=== PATIENT | male | born 1940 ===

== ENCOUNTER 2019-01-27 13:00 | Outpatient (RCR) | payer MEDICARE, MEDICAID, SELFPAY | END 2019-02-15 00:01 | LOC: WOUND 13:00 | PROVIDERS: Family Provider Nurse Practitioner; Visit Provider Nurse Practitioner Family | DX: L03.115 Cellulitis of right lower limb (principal) ==

== ENCOUNTER 2021-01-20 00:19 | Inpatient (IN) | payer MEDICARE, MEDICAID, SELFPAY ==
[2021-01-20] VITALS (22 sets, daily range): BP systolic 117–147; BP diastolic 52–112; PULSE 63–87; RESP 10–23; TEMP 36.6–37.9; O2SAT 91–99; BMI 46.7
--- NOTE | 2021-01-20 00:50 | PC.NURSE ---
Pt. triage notes entered in error on wrong chart.
--- NOTE | 2021-01-20 01:10 | CTR_ITS ---
PROCEDURE INFORMATION: Exam: CT Head Without Contrast Exam date and time: 01/20/2021 1:10 AM Age: 80 years old Clinical indication: Altered mental status/memory loss; Confusion or disorientation; Additional info: AMS TECHNIQUE: Imaging protocol: Computed tomography of the head without contrast. Radiation optimization: All CT scans at this facility use at least one of these dose optimization techniques: automated exposure control; mA and/or kV adjustment per patient size (includes targeted exams where dose is matched to clinical indication); or iterative reconstruction. COMPARISON: No relevant prior studies available. RADIATION DOSE METRICS: Total DLP (mGy-cm): 1402.97 FINDINGS: Brain: Loss of periventricular parenchyma. No hemorrhage. Mild chronic changes in the white matter. No mass effect. Cerebral ventricles: Ventricles are enlarged somewhat out of proportion to the cerebral sulci. Differential includes communicating hydrocephalus or central volume loss. Paranasal sinuses: Visualized sinuses are unremarkable. No fluid levels. Mastoid air cells: Visualized mastoid air cells are well aerated. Bones/joints: Unremarkable. No acute fracture. Soft tissues: Unremarkable. CT/CT head wo con* [id number] IMPRESSION: Ventricles are enlarged somewhat out of proportion to the cerebral sulci. Differential includes communicating hydrocephalus or central volume loss. Correlate for urinary incontinence, dementia, and gait disturbances. Radiation Dose CTDIVOL = (mGy): DLP = 1402.97 (mGy-cm)
--- NOTE | 2021-01-20 01:10 | XRR_ITS ---
PROCEDURE INFORMATION: Exam: XR Chest Exam date and time: 01/20/2021 1:10 AM Age: 80 years old Clinical indication: Other: AMS TECHNIQUE: Imaging protocol: XR of the chest. Views: 1 view. COMPARISON: 1. CR Chest 1 [place] [id number] 2016-12-27 11:13 2. CR Humerus LEFT* [id number] 2016-12-27 11:18 FINDINGS: Lungs: Moderate lung opacities in the right lung base, likely combination of atelectasis and consolidation. Retrocardiac opacities. Atelectatic right middle lobe correlate for mucous plugging, or obstructing lesion. Pleural spaces: Small to moderate right-sided pleural effusion and small left pleural effusions. Heart/Mediastinum: Cardiomegaly. Bones/joints: Unremarkable. XR/XR chest 1V portable [id number] IMPRESSION: 1. Cardiomegaly. 2. Moderate lung opacities in the right lung base, likely combination of atelectasis and consolidation. Retrocardiac opacities. Atelectatic right middle lobe correlate for mucous plugging, or obstructing lesion. 3. Small to moderate right-sided pleural effusion and small left pleural effusions. Radiation Dose CTDIVOL = (mGy): DLP = (mGy-cm)
--- NOTE | 2021-01-20 01:11 | ECG_ITS ---
[facility] Test Date: 2021-01-20 Pat Name: Kelton Wiseman Department: Room: Gender: Male Sql Report Developer: : 1940 Requested By: Paulie Sanchez Order Number: [id number] Maribel MD: Wolfgang Johnson M.D. Measurements Intervals [place] Rate: 78 P: 79 AL: 187 QRS: 50 QRSD: 138 T: 19 QT: 421 QTc: 480 Interpretive Statements SINUS RHYTHM RIGHT BUNDLE BRANCH BLOCK [120+ ms QRS DURATION, UPRIGHT V1, 40+ ms S IN I/aVL/V4/V5/V6] No previous ECG available for comparison Electronically Signed On 01-20-2021 13:16:38 TOBACCO CLASSER by Wolfgang Johnson M.D. [id number]
[2021-01-20 01:29] LABS: Basophils % 0.4 %; Eosinophils # 0.1 10^3/uL (0.0-0.8); Eosinophils % 0.9 %; Hematocrit 28.6 % (42.0-52.0); Hemoglobin 7.2 g/dL (11.7-16.6); Lymphocytes # 0.5 10^3/uL (0.8-4.8); Lymphocytes % 6.1 %; Mean Corpuscular HGB Conc 25.2 g/dL (30.0-36.0); Mean Corpuscular Hemoglobin 20.6 pg (28.0-34.0); Mean Corpuscular Volume 81.9 fl (80-94); Mean Platelet Volume 10.3 fL (7.4-10.4); Monocytes # 0.6 10^3/uL (0.2-0.9); Monocytes % 7.7 %; Neutrophils # 6.89 10^3/uL (1.8-7.7); Neutrophils % 84.2 %; Nucleated Red Blood Cells % 0 %; Platelet Count 191 10^3/cmm (130-400); Red Blood Count 3.49 10^6/uL (4.1-5.3); Red Cell Distribution Width 17.4 % (12.1-15.1); White Blood Count 8.2 10^3/uL (4.0-10.0)
[2021-01-20] MEDS: sodium chloride 0.9% 1,000 ML 999 ML IV (01:34)
[2021-01-20 01:43] LABS: Troponin(5th) Baseline 53 ng/L (0-15)
[2021-01-20 01:44] LABS: Lactate (Lactic Acid level) 0.9 mmol/L (0.5-2.2)
[2021-01-20 01:47] LABS: Add Urine Microscopic? YES; Bilirubin Urine Neg (Negative); Blood Urine 3+ (Negative); Glucose Urine UA Trace (Normal); Ketones Urine Negative (Negative); Leukocyte Esterase Urine 2+ (Negative); Nitrate Urine Negative (Negative); Protein Urine 1+ (Negative); Specific Gravity, Urine 1.015 (1.005-1.030); Urine Color Yellow (Yellow); Urobilinogen Urine Norm (Negative); pH Urine 6.5 (5-7)
[2021-01-20 01:51] LABS: NT Pro B Type Natriuretic Pept 1363 pg/mL (0-450); Procalcitonin 0.08 ng/mL (0-0.5)
[2021-01-20 02:02] LABS: ABG PH Result 7.24 (7.35-7.45); Base Excess ABG 6.3 mmol/L (-2.0-2.0); Blood Gas Allen Test Pos; Blood Gas Sample Site Radial, right; Blood Gas Sample Type Arterial; HCO3 ABG 34.8 mmol/L (22-26); Oxygen Device NC
[2021-01-20 02:02] LABS: Alanine Aminotransferase 23 U/L (0-41); Albumin Level 3.2 g/dL (3.5-5.2); Alkaline Phosphatase 66 IU/L (40-130); Aspartate Amino Transferase 15 U/L (0-40); Blood Urea Nitrogen 20 mg/dL (8-23); C Reactive Protein 8.3 mg/L (0.0-4.9); Calcium 7.3 mg/dL (8.5-10.5); Carbon Dioxide 24 mmol/L (22-29); Chloride 100 mmol/L (98-107); Globulin 2.1 g/dL (1.3-4.6); Glucose 188 mg/dL (65-115); Lipase 12 U/L (13-60); Magnesium 2.1 mg/dL (1.7-2.3); Osmolality Calculated 288 mOsm/kg (285-295); Sodium 135 mmol/L (136-145); Total Bilirubin 0.2 mg/dL (0.15-1.2); Total Protein 5.3 g/dL (6.6-8.7)
[2021-01-20 02:03] LABS: ABG PCO2 80.6 mmHg (35-45)
[2021-01-20 02:10] LABS: RBC Urine >100 /hpf (0-2); WBC Urine >100 /hpf (0-5)
[2021-01-20 02:11] LABS: Add Urine Culture? Yes; Bacteria Urine 3+ /hpf; Squamous Epithelial Cell Urine 0-4 /hpf (0-5)
[2021-01-20] MEDS: piperacillin-tazobactam 4.5 GM in sodium chloride 0.9% (plus) 50 ML IV (02:46)
--- NOTE | 2021-01-20 03:11 | ECG_ITS ---
[facility] Test Date: 2021-01-20 Pat Name: Kelton Wiseman Department: Room: Gender: Male Lsat Instructor: : 1940 Requested By: Paulie Sanchez Order Number: [id number] Maribel MD: Wolfgang Johnson M.D. Measurements Intervals [place] Rate: 84 P: 98 AL: 181 QRS: 91 QRSD: 134 T: 65 QT: 410 QTc: 487 Interpretive Statements SINUS RHYTHM WITH OCCASIONAL SUPRAVENTRICULAR PREMATURE COMPLEXES RIGHT BUNDLE BRANCH BLOCK [120+ ms QRS DURATION, UPRIGHT V1, 40+ ms S IN I/aVL/V4/V5/V6] Compared to ECG 01/20/2021 01:16:16 No significant changes Electronically Signed On 01-20-2021 13:28:50 DELPHI DEVELOPER by Wolfgang Johnson M.D. [id number]
[2021-01-20 04:06] LABS: D Dimer 0.61 ug/mIFEU (0-0.59)
--- NOTE | 2021-01-20 04:10 | ED_ITS ---
HPI - Altered Mental Status General: Chief Complaint: Altered Mental Status Stated Complaint: AMS Time Seen by Provider: 01/20/21 00:34 History of Present Illness: HPI narrative: 80-year-old nonverbal fpc patient. He is nonverbal, and has a history of developmental delay. He presents with altered mental status. Apparently, he is usually nonverbal, but somewhat up and about. He was quite lethargic in the fpc evidently. No history of fever, but the fpc did not call report, so we are unsure at this point. According to EMS, oxygen saturations had been in the 70s at the fpc MD complaint: altered mental status Onset (ago): unknown Timing confirmed by: other Severity: moderate Consistency of symptoms: Getting Worse Treatments prior to arrival: oxygen Review of Systems General: Reports: ROS unobtainable due to medical condition PFSH ED PFSH: Medical History Mild mental handicap Neurogenic bladder Type 2 diabetes mellitus without complications Surgical History History of bladder surgery History of colonoscopy History of esophagogastroduodenoscopy (EGD) History of hernia repair Physical Exam Const: EXAM LIMITATIONS: altered mental status and behavioral limitations GENERAL APPEARANCE: well kempt, ill appearing and frail appearing ORIENTATION/CONSCIOUSNESS: Yes oriented to person; not oriented to place and not oriented to time HENMT: COMMON NORMALS: normocephalic HEAD & SCALP: normocephalic Chest: COMMONS NORMALS: normal inspection of the chest Resp: EFFORT & INSPECTION: Yes tachypneic and Yes labored AUSCULTATION: no crackles, no rales, no rhonchi and diminished lung sounds Cardio: COMMON NORMALS: regular rate and regular rhythm RATE: regular rate RHYTHM: regular rhythm GI: COMMON NORMALS: Normal to inspection, nondistended, normoactive bowel sounds present, Soft to palpation and non-tender PALPATION: Yes Soft to palpation Extremity: GENERAL: Yes edema (Mild) Neuro: SENSORIUM/ORIENTATION: Yes oriented to person, No oriented to place and No oriented to time Psych: APPEARANCE: Yes well kempt Course Vital Signs: Vital signs: Vital Signs Temperature 98.7 F 01/20/21 00:19 Pulse Rate 68 01/20/21 04:36 Respiratory Rate 18 01/20/21 00:19 Blood Pressure 117/82 01/20/21 03:12 Pulse Oximetry 96 01/20/21 04:36 MDM - Altered Mental Status MDM Narrative: Medical decision making narrative: Patient is placed on BiPAP after ABG after arrival showed pH of 7.22 with PCO2 of 80. Hemoglobin is significantly low at 7.2. No prior hemoglobin to compare. White blood cell count is only 8. BMP is normal. Urinalysis shows nitrite positive, leukocyte esterase positive, greater than 100 WBCs and RBCs chest x-ray shows a right lower lobe consolidation with effusion. CT of the head is nonacute. pH improving after BiPAP and PCO2 is coming down. He is not hypotensive nor tachycardic, so sepsis fluid bolus was not given. Blood cultures are drawn and pending. He will go to the [facility]. Lab Data: Labs: Lab Results 01/20/21 01/20/21 01/20/21 00:54 00:54 00:54 WBC 8.2 10^3/uL 10^3/ uL (4.0-10.0) RBC 3.49 10^6/uL L 10 ^6/uL (4.1-5.3) Hgb 7.2 g/dL L g/dL (11.7-16.6) Hct 28.6 % L % (42.0-52.0) MCV 81.9 fl fl (80-94) MCH 20.6 pg L pg (28.0-34.0) MCHC 25.2 g/dL L g/dL (30.0-36.0) RDW 17.4 % H % (12.1-15.1) Plt Count 191 10^3/cmm 10^3 /cmm (130-400) MPV 10.3 fL fL (7.4-10.4) Neut % (Auto) 84.2 % % Lymph % (Auto) 6.1 % % [place] % (Auto) 7.7 % % Eos % (Auto) 0.9 % % Baso % (Auto) 0.4 % % Neut # (Auto) 6.89 10^3/uL 10^3 /uL (1.8-7.7) Lymph # (Auto) 0.5 10^3/uL L 10^ 3/uL (0.8-4.8) [place] # (Auto) 0.6 10^3/uL 10^3/ uL (0.2-0.9) Eos # (Auto) 0.1 10^3/uL 10^3/ uL (0.0-0.8) Baso # (Auto) 0.0 10^3/uL 10^3/ uL (0.0-0.1) Nucleated RBC % (a uto) 0 % % Nucleated RBCs # 0.0 /100WBC /100W BC D-Dimer Specimen Type Sample Site ABG pH ABG pCO2 ABG pO2 ABG HCO3 ABG Base Excess Cedric Test Hematocrit O2 Delivery Device O2 Liters/Min FiO2 Mode BiPAP Flight Crew Time Clerk ID Sodium 135 mmol/L L mmol /L (136-145) Potassium 5.0 mmol/L mmol/L (3.5-5.1) Chloride 100 mmol/L mmol/L (98-107) Carbon Dioxide 24 mmol/L mmol/L (22-29) Anion Gap 16.0 (5-19) BUN 20 mg/dL mg/dL (8-23) Creatinine 0.8 mg/dL mg/dL (0.7-1.2) GFR Calculation Not Reportable Glucose 188 mg/dL H mg/dL (65-115) Calculated Osmolal ity 288 mOsm/kg mOsm/ kg (285-295) Lactate 0.9 mmol/L mmol/L (0.5-2.2) Calcium 7.3 mg/dL L mg/dL (8.5-10.5) Magnesium 2.1 mg/dL mg/dL (1.7-2.3) Total Bilirubin 0.2 mg/dL mg/dL (0.15-1.2) AST 15 U/L U/L (0-40) ALT 23 U/L U/L (0-41) Alkaline Phosphata se 66 IU/L IU/L (40-130) Troponin T Baselin e Troponin T [address] [place] Troponin T C-Reactive Protein 8.3 mg/L H mg/L (0.0-4.9) NT-Pro-B Natriuret Pep 1363 pg/mL H pg/m L (0-450) Total Protein 5.3 g/dL L g/dL (6.6-8.7) Albumin 3.2 g/dL L g/dL (3.5-5.2) Globulin 2.1 g/dL g/dL (1.3-4.6) Lipase 12 U/L L U/L (13-60) Procalcitonin 0.08 ng/mL ng/mL (0-0.5) Urine Color Urine Appearance Urine pH Ur Specific Gravit y Urine Protein Urine Glucose (UA) Urine Ketones Urine Blood Urine Nitrate Urine Bilirubin Urine Urobilinogen Ur Leukocyte [place] Urine RBC Urine WBC Ur Squamous Epith Cells Amorphous Sediment Urine Bacteria SARS-CoV-2 Ag (Rap id) Blood Type Rho(D) Type Antibody Screen Crossmatch 01/20/21 01/20/21 01/20/21 00:54 00:54 01:10 WBC RBC Hgb Hct MCV MCH MCHC RDW Plt Count MPV Neut % (Auto) Lymph % (Auto) [place] % (Auto) Eos % (Auto) Baso % (Auto) Neut # (Auto) Lymph # (Auto) [place] # (Auto) Eos # (Auto) Baso # (Auto) Nucleated RBC % (a uto) Nucleated RBCs # D-Dimer 0.61 ug/mIFEU H u g/mIFEU (0-0.59) Specimen Type Arterial Sample Site Radial, right ABG pH 7.24 L (7.35-7.45) ABG pCO2 80.6 mmHg H* mmHg (35-45) ABG pO2 78.0 mmHg L mmHg (80.0-100.0) ABG HCO3 34.8 mmol/L H mmo l/L (22-26) ABG Base Excess 6.3 mmol/L H mmol /L (-2.0-2.0) Cedric Test Pos Hematocrit 24.0 % L % (42-52) O2 Delivery Device Nc O2 Liters/Min 4.0 % % FiO2 Mode BiPAP Flight Crew Time Clerk ID [email or web address] Sodium Potassium Chloride Carbon Dioxide Anion Gap BUN Creatinine GFR Calculation Glucose Calculated Osmolal ity Lactate Calcium Magnesium Total Bilirubin AST ALT Alkaline Phosphata se Troponin T Baselin e 53 ng/L H ng/L (0-15) Troponin T [address] [place] Troponin T C-Reactive Protein NT-Pro-B Natriuret Pep Total Protein Albumin Globulin Lipase Procalcitonin Urine Color Urine Appearance Urine pH Ur Specific Gravit y Urine Protein Urine Glucose (UA) Urine Ketones Urine Blood Urine Nitrate Urine Bilirubin Urine Urobilinogen Ur Leukocyte [place] Urine RBC Urine WBC Ur Squamous Epith Cells Amorphous Sediment Urine Bacteria SARS-CoV-2 Ag (Rap id) Blood Type Rho(D) Type Antibody Screen Crossmatch 01/20/21 01/20/21 01/20/21 01:36 02:30 02:30 WBC RBC Hgb Hct MCV MCH MCHC RDW Plt Count MPV Neut % (Auto) Lymph % (Auto) [place] % (Auto) Eos % (Auto) Baso % (Auto) Neut # (Auto) Lymph # (Auto) [place] # (Auto) Eos # (Auto) Baso # (Auto) Nucleated RBC % (a uto) Nucleated RBCs # D-Dimer Specimen Type Sample Site ABG pH ABG pCO2 ABG pO2 ABG HCO3 ABG Base Excess Cedric Test Hematocrit O2 Delivery Device O2 Liters/Min FiO2 Mode BiPAP Flight Crew Time Clerk ID Sodium Potassium Chloride Carbon Dioxide Anion Gap BUN Creatinine GFR Calculation Glucose Calculated Osmolal ity Lactate Calcium Magnesium Total Bilirubin AST ALT Alkaline Phosphata se Troponin T Baselin e Troponin T [address] [place] 49.50 ng/L H ng/L (0-15) [place] Troponin T -3.50 ABS# L ABS# (0-10) C-Reactive Protein NT-Pro-B Natriuret Pep Total Protein Albumin Globulin Lipase Procalcitonin Urine Color Yellow (Yellow) Urine Appearance Sl cloudy A (CLEAR) Urine pH 6.5 (5-7) Ur Specific Gravit y 1.015 (1.005-1.030) Urine Protein 1+ H (Negative) Urine Glucose (UA) Trace H (Normal) Urine Ketones Negative (Negative) Urine Blood 3+ H (Negative) Urine Nitrate Negative (Negative) Urine Bilirubin Neg (Negative) Urine Urobilinogen Norm mg/dL mg/dL (Negative) Ur Leukocyte [place] 2+ H (Negative) Urine RBC >100 /hpf H /hpf (0-2) Urine WBC >100 /hpf H /hpf (0-5) Ur Squamous Epith Cells 0-4 /hpf H /hpf (0-5) Amorphous Sediment Not Reportable Urine Bacteria 3+ /hpf H /hpf (NONE) SARS-CoV-2 Ag (Rap id) Blood Type A Positive Rho(D) Type Positive Antibody Screen Positive Crossmatch See Detail 01/20/21 01/20/21 03:51 03:57 WBC RBC Hgb Hct MCV MCH MCHC RDW Plt Count MPV Neut % (Auto) Lymph % (Auto) [place] % (Auto) Eos % (Auto) Baso % (Auto) Neut # (Auto) Lymph # (Auto) [place] # (Auto) Eos # (Auto) Baso # (Auto) Nucleated RBC % (a uto) Nucleated RBCs # D-Dimer Specimen Type Arterial Sample Site Radial, right ABG pH 7.32 L (7.35-7.45) ABG pCO2 65.7 mmHg H* mmHg (35-45) ABG pO2 90.2 mmHg mmHg (80.0-100.0) ABG HCO3 33.4 mmol/L H mmo l/L (22-26) ABG Base Excess 6.3 mmol/L H mmol /L (-2.0-2.0) Cedric Test Pos Hematocrit 24.0 % L % (42-52) O2 Delivery Device Bipap O2 Liters/Min FiO2 28.0 % % Mode BiPAP 14/6 Flight Crew Time Clerk ID [email or web address] Sodium Potassium Chloride Carbon Dioxide Anion Gap BUN Creatinine GFR Calculation Glucose Calculated Osmolal ity Lactate Calcium Magnesium Total Bilirubin AST ALT Alkaline Phosphata se Troponin T Baselin e Troponin T [address] [place] Troponin T C-Reactive Protein NT-Pro-B Natriuret Pep Total Protein Albumin Globulin Lipase Procalcitonin Urine Color Urine Appearance Urine pH Ur Specific Gravit y Urine Protein Urine Glucose (UA) Urine Ketones Urine Blood Urine Nitrate Urine Bilirubin Urine Urobilinogen Ur Leukocyte [place] Urine RBC Urine WBC Ur Squamous Epith Cells Amorphous Sediment Urine Bacteria SARS-CoV-2 Ag (Rap id) Negative (Negative) Blood Type Rho(D) Type Antibody Screen Crossmatch Discharge Plan Discharge Prescriptions: No Action citalopram 40 mg tablet 40 mg PO DAILY Qty: 30 RF: 0 levofloxacin 750 mg tablet 750 mg PO DAILY 7 Days Qty: 7 RF: 0 terazosin 5 mg capsule 5 mg PO DAILY RF: 0 acetaminophen [Tylenol Extra Strength] 500 mg tablet 500 mg PO Q6H PRN (Reason: Pain, Mild) RF: 0 sucralfate [Carafate] 1 gram tablet 1 gm PO BID RF: 0 furosemide [Lasix] 20 mg tablet 20 mg PO DAILY RF: 0 potassium chloride 10 mEq capsule, extended release 10 meq PO DAILY RF: 0 pravastatin [Pravachol] 40 mg tablet 40 mg PO DAILY RF: 0 metformin 500 mg tablet 500 mg PO BID RF: 0 magnesium oxide 400 mg (241.3 mg magnesium) tablet 400 mg PO DAILY RF: 0 docusate sodium [Colace] 100 mg capsule 100 mg PO DAILY RF: 0 lisinopril 2.5 mg tablet 2.5 mg PO DAILY RF: 0 ferrous sulfate 325 mg (65 mg iron) tablet 325 mg PO DAILY RF: 0 aspirin [Adult Aspirin Regimen] 81 mg tablet,delayed release (DR/EC) 81 mg PO DAILY RF: 0 triamcinolone acetonide 0.1 % ointment 1 applic topical BID Qty: 453.6 RF: 3 Hlqiqsi-Viphgbt-Gdiveyxbzozybn 90-60-800 mg Tablet Extended Release 12 Hr 1 tab PO QID RF: 0 albuterol sulfate 90 mcg/actuation Hfa Aerosol Inhaler 1 puff INHALATION QID PRN (Reason: Wheezing) RF: 0 ondansetron 4 mg Tablet,Disintegrating 4 mg PO Q6H PRN (Reason: Nausea) RF: 0 levocetirizine 5 mg Tablet 5 mg PO DAILY RF: 0 Coding Level of Care Code ED Lead Network Architect for Chg Fwd Exam Detailed
[2021-01-20 04:24] LABS: ABG PH Result 7.32 (7.35-7.45); Base Excess ABG 6.3 mmol/L (-2.0-2.0); Blood Gas Allen Test Pos; Blood Gas Sample Site Radial, right; Blood Gas Sample Type Arterial; HCO3 ABG 33.4 mmol/L (22-26); Oxygen Device BIPAP; PO2 ABG 90.2 mmHg (80.0-100.0)
[2021-01-20 04:26] LABS: ABG PCO2 65.7 mmHg (35-45); BIPAP 14/6
[2021-01-20 04:35] LABS: SARS Covid-2 Antigen Negative (Negative)
[2021-01-20 07:41] LABS: Troponin 5 6HR 50.58 ng/L (0-15)
[2021-01-20 07:42] LABS: Troponin 5 6HR Delta -2.42 ng/L (0-12)
--- NOTE | 2021-01-20 07:51 | P.HP_ITS ---
Providers/Chief Complaint Admitting Physician: Monica Maradiaga MD Primary Care Provider: Young Sotelo MD Chief Complaint: AMS History of Present Illness Kelton Wiseman is a 80 year old male, [place] [facility] for developmental delay. At a baseline patient does communicate no with very simple words, able to make needs known such as hunger bowel movements is extra. Transfers with a walker at baseline does not ambulate very much. He is brought into the emergency room today due to complaints of difficulty breathing, hypoxia new oxygen requirement of 5 L/min on nasal cannula. This past week he was also being treated for a urinary tract infection with levofloxacin 750 mg p.o. daily. History is obtained by talking to nurse at [facility]. About 2 weeks ago patient had an episode of witnessed aspiration while he was eating a large piece of chicken. He was on a regular diet prior, after this event he was evaluated by swallow specialist and has been placed on a soft mechanical diet. Patient has a chronic indwelling Villatoro in place which is changed regularly. Chest x-ray today shows right lower lobe pneumonia with pleural effusion. ABG shows hypercapnic respiratory failure with pH 7.24, 80 point 4.8, he was thereafter placed on a BiPAP. He has been afebrile. No leukocytosis noted on labs from 01 18 and today. Noted to have anemia with hemoglobin 7.2, no recent noted melena or hemoptysis at the [place] [facility]. Last known baseline hemoglobin is ~9 last checked on November 15, 2020 He was tested with rapid Covid antigen this past week and was reportedly negative. PCR has been checked today and pending Review of Systems General: Reports: ROS unobtainable due to medical condition Medications/Allergies Home Medications Medication Instructions Recorded Confirmed Last Taken Type acetaminophen 500 mg tablet 500 mg PO Q6H PRN 06/01/19 01/20/21 Unknown History docusate sodium 100 mg capsule 100 mg PO DAILY 06/01/19 01/20/21 Unknown History ferrous sulfate 325 mg (65 mg 325 mg PO DAILY 06/01/19 01/20/21 Unknown History iron) tablet furosemide 20 mg tablet 20 mg PO DAILY 06/01/19 01/20/21 Unknown History lisinopril 2.5 mg tablet 2.5 mg PO DAILY 06/01/19 01/20/21 Unknown History magnesium oxide 400 mg (241.3 mg 400 mg PO DAILY 06/01/19 01/20/21 Unknown History magnesium) tablet metformin 500 mg tablet 500 mg PO BID 06/01/19 01/20/21 Unknown History potassium chloride 10 mEq 10 meq PO DAILY 06/01/19 01/20/21 Unknown History capsule,extended release pravastatin 40 mg tablet 40 mg PO DAILY 06/01/19 01/20/21 Unknown History sucralfate 1 gram tablet 1 gm PO BID 06/01/19 01/20/21 Unknown History terazosin 5 mg capsule 5 mg PO DAILY 06/01/19 01/20/21 Unknown History aspirin 81 mg tablet,delayed 81 mg PO DAILY 08/16/20 01/20/21 Unknown History release triamcinolone acetonide 0.1 % 1 applic TOPICAL BID #453.6 g 08/16/20 01/20/21 Unknown Rx topical ointment citalopram 40 mg tablet 40 mg PO DAILY #30 tab 09/06/20 01/20/21 Unknown Rx levofloxacin 750 mg tablet 750 mg PO DAILY 7 Days #7 tab 01/17/21 01/20/21 Unknown Rx albuterol sulfate 1 puff INHALATION QID PRN 01/20/21 01/20/21 Unknown History levocetirizine 5 mg PO DAILY 01/20/21 01/20/21 Unknown History ondansetron 4 mg PO Q6H PRN 01/20/21 01/20/21 Unknown History whvsxpwcqgxrfgu-US-ncnqofxxdlg 1 tab PO QID 01/20/21 01/20/21 Unknown History [Gipslrw-[id number]-Mtkcwijozghvzx] Allergies Allergy/AdvReac Type Severity Reaction Status Date / Time No Known Allergies Allergy Verified 01/20/21 00:32 PFSH Acute PFSH: Medical History (Updated 01/20/21 @ 08:03 by Monica Maradiaga MD) Anal fistula Arthritis of knee Bilateral edema of lower extremity GERD (gastroesophageal reflux disease) Iron deficiency Mild mental handicap Neurogenic bladder Pure hypercholesterolemia, unspecified Retention of urine, unspecified Type 2 diabetes mellitus without complications Surgical History History of bladder surgery History of colonoscopy History of esophagogastroduodenoscopy (EGD) History of hernia repair Vitals/I&O/Wt Last Vital Signs Temp 98.7 F 01/20/21 00:19 Pulse 68 01/20/21 06:09 Resp 18 01/20/21 00:19 BP 118/72 01/20/21 06:09 Pulse Ox 98 01/20/21 06:09 01/19/21 01/20/21 01/20/21 22:59 06:59 14:59 Intake Total 1050 / 1050 Balance 1050 / 1050 Weight last 48 hrs Weight 123.377 kg Weight 54.885 kg Physical Exam Narrative: EXAM NARRATIVE: General: Currently on Bipap, unable to participate in history HEENT: PERRLA, pupils bilaterally equal and reactive, pallors not present Chest: crackles to asucultation RLL CVS: S1-S2 regular, no murmurs, no tachycardia, no gallops, no rubs Abdomen: Soft, nontender, no organomegaly, bowel sounds present Neuro: unable to assess at this time Data : 01/20/21 00:54 01/20/21 00:54 Micro: Microbiology 01/20/21 02:36 Blood Culture - Preliminary Blood SPECIMEN COLLECTED 01/20/21 02:34 Blood Culture - Preliminary Blood SPECIMEN COLLECTED Attestation for Other Data: I personally reviewed and interpreted the following: Other data: Laboratory Results WBC 8.2 10^3/uL (4.0-10.0) 01/20/21 00:54 RBC 3.49 10^6/uL (4.1-5.3) L 01/20/21 00:54 Hgb 7.2 g/dL (11.7-16.6) L 01/20/21 00:54 Hct 28.6 % (42.0-52.0) L 01/20/21 00:54 MCV 81.9 fl (80-94) 01/20/21 00:54 MCH 20.6 pg (28.0-34.0) L 01/20/21 00:54 MCHC 25.2 g/dL (30.0-36.0) L 01/20/21 00:54 RDW 17.4 % (12.1-15.1) H 01/20/21 00:54 Plt Count 191 10^3/cmm (130-400) 01/20/21 00:54 MPV 10.3 fL (7.4-10.4) 01/20/21 00:54 Neut % (Auto) 84.2 % 01/20/21 00:54 Lymph % (Auto) 6.1 % 01/20/21 00:54 [place] % (Auto) 7.7 % 01/20/21 00:54 Eos % (Auto) 0.9 % 01/20/21 00:54 Baso % (Auto) 0.4 % 01/20/21 00:54 Neut # (Auto) 6.89 10^3/uL (1.8-7.7) 01/20/21 00:54 Lymph # (Auto) 0.5 10^3/uL (0.8-4.8) L 01/20/21 00:54 [place] # (Auto) 0.6 10^3/uL (0.2-0.9) 01/20/21 00:54 Eos # (Auto) 0.1 10^3/uL (0.0-0.8) 01/20/21 00:54 Baso # (Auto) 0.0 10^3/uL (0.0-0.1) 01/20/21 00:54 Nucleated RBC % (auto) 0 % 01/20/21 00:54 Nucleated RBCs # 0.0 /100WBC 01/20/21 00:54 D-Dimer 0.61 ug/mIFEU (0-0.59) H 01/20/21 00:54 Specimen Type Arterial 01/20/21 03:51 Sample Site Radial, right 01/20/21 03:51 ABG pH 7.32 (7.35-7.45) L 01/20/21 03:51 ABG pCO2 65.7 mmHg (35-45) H* 01/20/21 03:51 ABG pO2 90.2 mmHg (80.0-100.0) 01/20/21 03:51 ABG HCO3 33.4 mmol/L (22-26) H 01/20/21 03:51 ABG Base Excess 6.3 mmol/L (-2.0-2.0) H 01/20/21 03:51 Cedric Test Pos 01/20/21 03:51 Hematocrit 24.0 % (42-52) L 01/20/21 03:51 O2 Delivery Device Bipap 01/20/21 03:51 O2 Liters/Min 4.0 % 01/20/21 01:10 FiO2 28.0 % 01/20/21 03:51 Mode BiPAP 14/6 01/20/21 03:51 Cdl Company Flatbed Driver ID [email or web address] 01/20/21 03:51 Sodium 135 mmol/L (136-145) L 01/20/21 00:54 Potassium 5.0 mmol/L (3.5-5.1) 01/20/21 00:54 Chloride 100 mmol/L (98-107) 01/20/21 00:54 Carbon Dioxide 24 mmol/L (22-29) 01/20/21 00:54 Anion Gap 16.0 (5-19) 01/20/21 00:54 BUN 20 mg/dL (8-23) 01/20/21 00:54 Creatinine 0.8 mg/dL (0.7-1.2) 01/20/21 00:54 GFR Calculation Not Reportable 01/20/21 00:54 Glucose 188 mg/dL (65-115) H 01/20/21 00:54 Calculated Osmolality 288 mOsm/kg (285-295) 01/20/21 00:54 Lactate 0.9 mmol/L (0.5-2.2) 01/20/21 00:54 Calcium 7.3 mg/dL (8.5-10.5) L 01/20/21 00:54 Magnesium 2.1 mg/dL (1.7-2.3) 01/20/21 00:54 Total Bilirubin 0.2 mg/dL (0.15-1.2) 01/20/21 00:54 AST 15 U/L (0-40) 01/20/21 00:54 ALT 23 U/L (0-41) 01/20/21 00:54 Alkaline Phosphatase 66 IU/L (40-130) 01/20/21 00:54 Troponin T Baseline 53 ng/L (0-15) H 01/20/21 00:54 Troponin T 120 Minute 49.50 ng/L (0-15) H 01/20/21 02:30 Delta Troponin T -3.50 ABS# (0-10) L 01/20/21 02:30 Troponin T Hi Sens 6Hr 50.58 ng/L (0-15) H 01/20/21 07:04 Troponin T Hi Sens 6Hr Delta -2.42 ng/L (0-12) L 01/20/21 07:04 C-Reactive Protein 8.3 mg/L (0.0-4.9) H 01/20/21 00:54 NT-Pro-B Natriuret Pep 1363 pg/mL (0-450) H 01/20/21 00:54 Total Protein 5.3 g/dL (6.6-8.7) L 01/20/21 00:54 Albumin 3.2 g/dL (3.5-5.2) L 01/20/21 00:54 Globulin 2.1 g/dL (1.3-4.6) 01/20/21 00:54 Lipase 12 U/L (13-60) L 01/20/21 00:54 Procalcitonin 0.08 ng/mL (0-0.5) 01/20/21 00:54 Urine Color Yellow (Yellow) 01/20/21 01:36 Urine Appearance Sl cloudy (CLEAR) A 01/20/21 01:36 Urine pH 6.5 (5-7) 01/20/21 01:36 Ur Specific Gail 1.015 (1.005-1.030) 01/20/21 01:36 Urine Protein 1+ (Negative) H 01/20/21 01:36 Urine Glucose (UA) Trace (Normal) H 01/20/21 01:36 Urine Ketones Negative (Negative) 01/20/21 01:36 Urine Blood 3+ (Negative) H 01/20/21 01:36 Urine Nitrate Negative (Negative) 01/20/21 01:36 Urine Bilirubin Neg (Negative) 01/20/21 01:36 Urine Urobilinogen Norm mg/dL (Negative) 01/20/21 01:36 Ur Leukocyte Esterase 2+ (Negative) H 01/20/21 01:36 Urine RBC >100 /hpf (0-2) H 01/20/21 01:36 Urine WBC >100 /hpf (0-5) H 01/20/21 01:36 Ur Squamous Epith Cells 0-4 /hpf (0-5) H 01/20/21 01:36 Amorphous Sediment Not Reportable 01/20/21 01:36 Urine Bacteria 3+ /hpf (NONE) H 01/20/21 01:36 SARS-CoV-2 Ag (Rapid) Negative (Negative) 01/20/21 03:57 Blood Type A Positive 01/20/21 02:30 Rho(D) Type Positive 01/20/21 02:30 Antibody Screen Negative 01/20/21 02:30 Antibody Identification Cancelled 01/20/21 02:30 Crossmatch See Detail 01/20/21 02:30 Impressions Chest X-Ray 01/20/21 01:10 IMPRESSION: 1. Cardiomegaly. 2. Moderate lung opacities in the right lung base, likely combination of atelectasis and consolidation. Retrocardiac opacities. Atelectatic right middle lobe correlate for mucous plugging, or obstructing lesion. 3. Small to moderate right-sided pleural effusion and small left pleural effusions. Radiation Dose CTDIVOL = (mGy): DLP = (mGy-cm) Head CT 01/20/21 01:10 IMPRESSION: Ventricles are enlarged somewhat out of proportion to the cerebral sulci. Differential includes communicating hydrocephalus or central volume loss. Correlate for urinary incontinence, dementia, and gait disturbances. Radiation Dose CTDIVOL = (mGy): DLP = 1402.97 (mGy-cm) A&P Assessment and plan (1) Pneumonia: Status: Acute (2) Mild mental handicap: Status: Acute (3) Neurogenic bladder: Status: Acute (4) Anemia: Status: Acute Additional A&P Information Longstanding [place] [facility] resident presenting today with noted hypoxia and respiratory discomfort. Brought into the ER for evaluation, chest x-ray shows right lower lobe pneumonia and ABG consistent with hypercapnic respiratory failure, currently on BiPAP ventilation. Overall picture consistent with right lower lobe pneumonia, which may be territory account representative of community-acquired pneumonia versus aspiration pneumonia given recent history of choking episode on 01/08 and change in diet to mechanical soft consistency thereafter. Start antibiotic treatment with empiric Zosyn. Less likely to be atypical pneumonia given that patient has been on outpatient levofloxacin. Check blood culture, sputum Gram stain and culture, MRSA PCR, urine bacterial and Legionella antigens, Covid PCR ABG consistent with hypercapnic respiratory failure with respiratory acidosis for which patient is currently on BiPAP ventilation. Repeat ABG this morning. Mild insulin sliding scale for diabetes mellitus. Noted to have anemia with hemoglobin of 7, last known baseline~9 on Jodi 30. Check FOBT, iron panel B12 folate. 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
[2021-01-20] MEDS: ipratropium-albuterol 3 mL Neb INHALATION ×3 (08:48→20:55)
[2021-01-20 09:01] LABS: ABG PH Result 7.37 (7.35-7.45); Arterial Blood Gas Hematocrit 24.4 % (42-52); Base Excess ABG 9.5 mmol/L (-2.0-2.0); Blood Gas Allen Test Pos; Blood Gas Operator Identificat CAK; Blood Gas Sample Site Radial, right; Blood Gas Sample Type Arterial; Oxygen Device BIPAP; PO2 ABG 58.2 mmHg (80.0-100.0)
[2021-01-20 09:02] LABS: ABG PCO2 62.3 mmHg (35-45)
[2021-01-20] MEDS: piperacillin-tazobactam 3.375 GM in sodium chloride 0.9% (plus) 50 ML IV ×2 (10:56→23:26)
[2021-01-20] MEDS: FUROsemide 20 mg Tablet PO (10:58)
[2021-01-20] MEDS: atorvastatin 40 mg Tablet 20 MG PO (10:58)
[2021-01-20] MEDS: citalopram 20 mg Tablet 40 MG PO (10:59)
[2021-01-20] MEDS: lisinopril 2.5 mg Tablet PO (11:00)
[2021-01-20 11:01] LABS: Ferritin 7 ng/mL (30-400); Iron 19 ug/dL (59-158); Percent Saturation 6.5 % (20-50); Total Iron Binding Capacity 289 mcg/dl; Unsaturated Iron Binding 270 ug/dL (112-347)
[2021-01-20] MEDS: pantoprazole DR 40 mg Tablet PO (11:01)
[2021-01-20] MEDS: magnesium oxide 400 mg tablet PO (11:01)
[2021-01-20] MEDS: docusate sodium 100 mg Capsule PO (11:02)
[2021-01-20] MEDS: terazosin 5 mg Capsule PO (11:03)
[2021-01-20] MEDS: sucralfate 1 gm Tablet PO (11:04)
[2021-01-20] MEDS: enoxaparin 40 mg/0.4 mL Syringe SUBCUT (11:06)
[2021-01-20 11:17] LABS: Vitamin B12 197 pg/mL (232-1245)
--- NOTE | 2021-01-20 11:57 | PC.NURSE ---
Fed pt full noon meal. Ate without any complications.
[2021-01-20 12:07] LABS: Folate Level 14.3 ng/mL (4.5-32.2)
--- NOTE | 2021-01-20 12:57 | PM.MISC ---
Miscellaneous Note Note: Patient is here for management of aspiration pneumonia he was awake and alert saturating well on 4 L nasal cannula at the time of my evaluation in the ER Continue Zosyn Follow-up with blood and sputum culture Obese male Oriented to himself able to tell me his name and date of Pleasant and cooperative during my evaluation Nonfocal neuro exam Able to move his upper extremities Paraplegic Chronic indwelling catheter draining yellow urine Venous stasis dermatitis Nonpitting edema Distended abdomen, basal obesity No audible stridor or wheezing Upper airway secretions regimens noted Plan Acute hypoxia without respiratory failure patient is not experiencing conversational dyspnea Currently on 4 L nasal cannula, off BiPAP Repeat blood gas at 4 PM Awake and alert no signs of encephalopathy Aspiration pneumonia: We will request speech evaluation Does not have any strokelike features, nonfocal neuro exam Acute anemia no active bleeding no melena or hemoptysis Check FOBT, will give 1 unit PRBC if hemoglobin less than 7 Baseline hemoglobin seems to around 9 Neurogenic bladder: Chronic indwelling catheter, cloudy urine pyuria, no leukocytosis or fever currently on Zosyn Fluid overloaded, troponin with negative delta, BNP 1300, Continue 20 mg Lasix Acute on chronic heart failure Fluid overloaded, DNR/DNI
[2021-01-20 13:41] LABS: Influenza A by IFA Negative (Negative); Influenza B by IFA Negative (Negative)
[2021-01-20 13:45] LABS: Glucose Point of Care 190 mg/dL (70-110)
[2021-01-20] MEDS: insulin lispro 100 unit/1 mL SUBCUT (13:48)
[2021-01-20 18:23] LABS: Glucose Point of Care 130 mg/dL (70-110)
--- NOTE | 2021-01-20 18:54 | PC.NURSE ---
Addendum entered by Virgie Talley RN 01/20/21 18:55: ABX at 1700 Original Note: Waiting for medication from pharmacy
--- NOTE | 2021-01-20 19:08 | PC.NURSE ---
report given at 1835. Documentated wrong time for report
[2021-01-20 20:17] LABS: Glucose Point of Care 152 mg/dL (70-110)
[2021-01-21] VITALS (16 sets, daily range): BP systolic 117–138; BP diastolic 53–82; PULSE 69–78; RESP 16–27; TEMP 36.6–37.3; O2SAT 90–98
[2021-01-21] MEDS: ipratropium-albuterol 3 mL Neb INHALATION ×4 (02:57→20:45)
--- NOTE | 2021-01-21 06:00 | USCV_ITS ---
Kelton Wiseman Age: 80 Gender: M : 1940 Exam Date: 01/21/2021 10:00 Ordering Phys: Elle Mcclure MD Technologist: BRANDAN [place] [facility] [place] EF only Patient is a poor historian. BP: 122 / 76 HR: 81 Rhythm: Sinus Technical Quality: Adequate MEASUREMENTS (Male / Female) Normal Values 2D ECHO LV Diastolic Diameter PLAX 5.2 cm 4.2 - 5.9 / 3.9 - 5.3 cm LV Systolic Diameter PLAX 3.9 cm IVS Diastolic Thickness 1.6 cm 0.6 - 1.0 / 0.6 - 0.9 cm IVS Systolic Thickness 2.1 cm LVPW Diastolic Thickness 1.1 cm 0.6 - 1.0 / 0.6 - 0.9 cm LVPW Systolic Thickness 1.6 cm LVOT Diameter 2.0 cm LV Ejection Fraction 2D Teich 47.5 % LV Ejection Fraction MOD 2C 49.0 % LV Ejection Fraction 2C AL 50.0 % LA Diameter 4.7 cm LA Width 3.6 cm LA Height 4.3 cm RA Width 3.7 cm RA Height 3.5 cm Aorta at Sinotubular Diameter 2.7 cm FINDINGS Left Ventricle Normal left ventricular cavity size. Grossly normal left ventricle systolic function. Visually left ventricle ejection fraction estimated at 55%. Although no diagnostic regional wall motion abnormality could been fired, this possibility cannot be completely excluded based on the study. Abnormal septal motion. Right Ventricle Probably normal right ventricle size with mildly to moderately decreased right ventricle systolic function. Right Atrium Normal right atrial size. Left Atrium Mildly increased left atrial size. Mitral Valve Mildly thickened mitral valve. Aortic Valve Aortic valve not well visualized. Tricuspid Valve Tricuspid valve not well visualized. Pulmonic Valve Pulmonic valve not well visualized. Pericardium No pericardial effusion. Aorta Normal-sized aortic root. CONCLUSIONS 1. This is a technically difficult study. 2. Normal left ventricular cavity size. Grossly normal left ventricle systolic function. Visually left ventricle ejection fraction estimated at 55%. Although no diagnostic regional wall motion abnormality could been fired, this possibility cannot be completely excluded based on the study. Abnormal septal motion. 3. Probably normal right ventricle size with mildly to moderately decreased right ventricle systolic function. 4. No prior similar studies to compare. Monica Rodas MD (Electronically Signed) Final Date: 22 January 2021 16:24 S
[2021-01-21 06:06] LABS: Basophils % 0.4 %; Eosinophils # 0.2 10^3/uL (0.0-0.8); Eosinophils % 2.2 %; Hematocrit 28.5 % (42.0-52.0); Hemoglobin 7.4 g/dL (11.7-16.6); Lymphocytes # 0.6 10^3/uL (0.8-4.8); Lymphocytes % 8.8 %; Mean Corpuscular Hemoglobin 20.4 pg (28.0-34.0); Mean Corpuscular Volume 78.5 fl (80-94); Mean Platelet Volume 10.6 fL (7.4-10.4); Monocytes # 0.6 10^3/uL (0.2-0.9); Monocytes % 8.8 %; Neutrophils # 5.33 10^3/uL (1.8-7.7); Neutrophils % 79.2 %; Nucleated Red Blood Cells % 0 %; Platelet Count 194 10^3/cmm (130-400); Red Blood Count 3.63 10^6/uL (4.1-5.3); Red Cell Distribution Width 17.2 % (12.1-15.1); White Blood Count 6.7 10^3/uL (4.0-10.0)
[2021-01-21 06:25] LABS: Alanine Aminotransferase 22 U/L (0-41); Albumin Level 3.2 g/dL (3.5-5.2); Alkaline Phosphatase 64 IU/L (40-130); Anion Gap 14.4 (5-19); Aspartate Amino Transferase 12 U/L (0-40); Blood Urea Nitrogen 17 mg/dL (8-23); Calcium 7.6 mg/dL (8.5-10.5); Carbon Dioxide 29 mmol/L (22-29); Chloride 102 mmol/L (98-107); Globulin 2.5 g/dL (1.3-4.6); Glucose 102 mg/dL (65-115); Osmolality Calculated 294 mOsm/kg (285-295); Potassium 4.4 mmol/L (3.5-5.1); Sodium 141 mmol/L (136-145); Total Bilirubin 0.2 mg/dL (0.15-1.2); Total Protein 5.7 g/dL (6.6-8.7)
[2021-01-21 08:24] LABS: Glucose Point of Care 116 mg/dL (70-110)
[2021-01-21] MEDS: enoxaparin 40 mg/0.4 mL Syringe SUBCUT (08:47)
[2021-01-21] MEDS: pantoprazole DR 40 mg Tablet PO (08:48)
[2021-01-21] MEDS: citalopram 20 mg Tablet 40 MG PO (08:48)
[2021-01-21] MEDS: atorvastatin 40 mg Tablet 20 MG PO (08:48)
[2021-01-21] MEDS: sucralfate 1 gm Tablet PO ×2 (08:48→17:49)
[2021-01-21] MEDS: magnesium oxide 400 mg tablet PO (08:49)
[2021-01-21] MEDS: docusate sodium 100 mg Capsule PO (08:49)
[2021-01-21] MEDS: FUROsemide 20 mg Tablet PO (08:49)
[2021-01-21] MEDS: lisinopril 2.5 mg Tablet PO (08:49)
[2021-01-21] MEDS: piperacillin-tazobactam 3.375 GM in sodium chloride 0.9% (plus) 50 ML IV ×2 (10:49→17:40)
--- NOTE | 2021-01-21 11:57 | PM.PN ---
Subjective Subjective: Interval history: Seen this morning. No acute events overnight. Patient does not offer any complaints. He appears quite pleasant. He was about to have an echo done when I walked in the room. No acute events reported by nursing staff overnight. He was on BiPAP all night and now is on nasal cannula. Vitals/I&O/Wt Last Vital Signs Temp 98.7 F 01/21/21 11:46 Pulse 71 01/21/21 11:46 Resp 18 01/21/21 11:46 BP 123/53 01/21/21 11:46 Pulse Ox 90 01/21/21 11:46 01/20/21 01/21/21 01/21/21 22:59 06:59 14:59 Intake Total 200 / 200 200 / 400 480 / 480 Output Total 650 / 1550 Balance 200 / -700 -450 / -1150 480 / 480 Weight last 48 hrs Weight 123.377 kg Weight 54.885 kg Physical Exam Narrative: EXAM NARRATIVE: General: On nasal cannula at this time, very pleasant alert and oriented. Able to tell me his name and date of . Cooperative during examination. HEENT: Normocephalic atraumatic, pupils bilaterally equal and reactive, Chest: Mild crackles appreciated on auscultation the right lung base, rest of the lungs mainly clear to auscultation. Normal respiratory effort CVS: S1-S2 regular, no murmurs, Abdomen: Soft, nontender, bowel sounds present, obese rounded abdomen Neuro: Able to move upper extremities, paraplegic, Has chronic Villatoro catheter Data : 01/21/21 05:07 01/21/21 05:07 Micro: Microbiology 01/20/21 01:36 Urine Culture - Preliminary Urine Catheterized Gram Negative Rods 01/20/21 02:36 Blood Culture - Preliminary Blood NEGATIVE TO DATE 01/20/21 02:34 Blood Culture - Preliminary Blood NEGATIVE TO DATE 01/20/21 13:15 MRSA Culture - Final Nose 01/20/21 12:10 Legionella Urinary Antigen - Final Urine,Voided Bacterial Antigens - Final A&P Assessment and plan (1) Neurogenic bladder: Status: Acute (2) Pneumonia: Status: Acute (3) Anemia: Status: Acute (4) Stasis dermatitis: Status: Acute (5) Mild mental handicap: Status: Acute Additional A&P Information #Right lower lobe aspiration pneumonia #Hypercapnic respiratory failure on admission, on BiPAP. Now back to nasal cannula. #Diabetes mellitus #Intellectually disabled #Chronic indwelling Villatoro due to neurogenic bladder. #Paraplegia #Bilateral pleural effusions, cardiomegaly on x-ray #Acute anemia, no active bleeding or melena or hemoptysis Patient did have a choking episode on 01/08 and there was a change in diet done to mechanical soft consistency thereafter.. Continue IV Zosyn for now. Off note patient was on outpatient levofloxacin prior to arrival. ?Blood cultures negative to date, sputum Gram stain culture pending, MRSA PCR negative, urine bacterial Legionella antigens negative, Covid PCR ?Speech evaluation requested. No strokelike features nonfocal neuro exam. Continue patient on 4 L nasal cannula. ?We will need home oxygen evaluation at discharge ?Continue Villatoro catheter, urinalysis did not show leukocytosis. Patient has been covered with Zosyn for pneumonia at this time. Urinalysis did show gram-negative rods, culture sensitivity pending. ?Cardiomegaly on x-ray. Small to moderate right-sided pleural effusion and small left pleural effusions. Will transition to Lasix 40 IV daily. ?Echocardiogram pending. BNP 1300 admission. Unsure if patient has diagnosis of heart failure from prior. Please review the charts. ?Hemoglobin 7.4 today. 7.2 on admission. Will check FOBT, B12, folate., Iron studies. Full code Mech soft diet, may change based on speech recs. 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
[2021-01-21 12:00] LABS: Glucose Point of Care 169 mg/dL (70-110)
[2021-01-21] MEDS: insulin lispro 100 unit/1 mL SUBCUT ×3 (12:17→22:05)
[2021-01-21] MEDS: terazosin 5 mg Capsule PO (12:18)
[2021-01-21 13:46] LABS: Iron 13 ug/dL (59-158); Percent Saturation 4.9 % (20-50); Total Iron Binding Capacity 264 mcg/dl; Unsaturated Iron Binding 251 ug/dL (112-347)
[2021-01-21 14:03] LABS: Vitamin B12 160 pg/mL (232-1245)
[2021-01-21 15:14] LABS: Folate Level 17.7 ng/mL (4.5-32.2)
[2021-01-21] MEDS: FUROsemide 10 mg/mL SDV 4mL 40 MG IVP (16:03)
[2021-01-21 17:21] LABS: Glucose Point of Care 171 mg/dL (70-110)
[2021-01-21 17:22] LABS: Quest SARS-CoV-2 RNA NOT DETECTED (NOT DETECTED)
[2021-01-21 20:41] LABS: Hematocrit 29.9 % (42.0-52.0); Hemoglobin 7.9 g/dL (11.7-16.6)
[2021-01-21 22:45] LABS: Glucose Point of Care 250 mg/dL (70-110)
[2021-01-22] VITALS (15 sets, daily range): BP systolic 119–138; BP diastolic 52–87; PULSE 66–91; RESP 18–24; TEMP 36.5–37.1; O2SAT 89–97
[2021-01-22] MEDS: ipratropium-albuterol 3 mL Neb INHALATION ×4 (02:45→20:48)
[2021-01-22] MEDS: piperacillin-tazobactam 3.375 GM in sodium chloride 0.9% (plus) 50 ML IV ×3 (03:04→17:50)
[2021-01-22 06:11] LABS: Basophils % 0.4 %; Eosinophils # 0.1 10^3/uL (0.0-0.8); Eosinophils % 1.2 %; Hematocrit 28.9 % (42.0-52.0); Hemoglobin 7.5 g/dL (11.7-16.6); Lymphocytes # 0.5 10^3/uL (0.8-4.8); Mean Corpuscular Hemoglobin 20.4 pg (28.0-34.0); Mean Corpuscular Volume 78.5 fl (80-94); Mean Platelet Volume 10.5 fL (7.4-10.4); Monocytes # 0.6 10^3/uL (0.2-0.9); Monocytes % 7.9 %; Neutrophils # 6.21 10^3/uL (1.8-7.7); Nucleated Red Blood Cells % 0 %; Platelet Count 189 10^3/cmm (130-400); Red Blood Count 3.68 10^6/uL (4.1-5.3); Red Cell Distribution Width 17.4 % (12.1-15.1); White Blood Count 7.5 10^3/uL (4.0-10.0)
[2021-01-22 06:29] LABS: Anion Gap 16.3 (5-19); Blood Urea Nitrogen 19 mg/dL (8-23); Calcium 7.7 mg/dL (8.5-10.5); Carbon Dioxide 29 mmol/L (22-29); Chloride 101 mmol/L (98-107); Glucose 136 mg/dL (65-115); Magnesium 1.9 mg/dL (1.7-2.3); Osmolality Calculated 298 mOsm/kg (285-295); Potassium 4.3 mmol/L (3.5-5.1); Sodium 142 mmol/L (136-145)
[2021-01-22 06:39] LABS: Glucose Point of Care 150 mg/dL (70-110)
--- NOTE | 2021-01-22 08:10 | XR_ITS ---
WS: [id number] Exam: XR chest 1V portable [id number] Date/Time of Exam: 01/22/2021 8:12 AM Reason For Exam: follow up pleural effusion Comparison 01/20/2021. There is cardiac enlargement with pulmonary vascular congestion suggesting some degree of CHF. There is infiltrate and atelectasis in the right lower lobe. Small right basal pleural effusion. No pneumot horax. There may be a hiatal hernia present. The mediastinum is not widened. Regional bony structures are intact. XR/XR chest 1V portable [id number] IMPRESSION: 1. Cardiac enlargement with pulmonary vascular congestion suggesting some degre e of CHF. The pattern shows little change. 2. Infiltrate in the right lower lobe which could represent superimposed pneumo margie. Small right basal pleural effusion. Overall, very little change since prio r study.
[2021-01-22] MEDS: citalopram 20 mg Tablet 40 MG PO (09:04)
[2021-01-22] MEDS: docusate sodium 100 mg Capsule PO (09:04)
[2021-01-22] MEDS: atorvastatin 40 mg Tablet 20 MG PO (09:04)
[2021-01-22] MEDS: sucralfate 1 gm Tablet PO ×2 (09:04→17:50)
[2021-01-22] MEDS: pantoprazole DR 40 mg Tablet PO (09:04)
[2021-01-22] MEDS: terazosin 5 mg Capsule PO (09:04)
[2021-01-22] MEDS: insulin lispro 100 unit/1 mL SUBCUT ×4 (09:04→21:17)
[2021-01-22] MEDS: lisinopril 2.5 mg Tablet PO (09:04)
[2021-01-22] MEDS: magnesium oxide 400 mg tablet PO (09:04)
[2021-01-22] MEDS: enoxaparin 40 mg/0.4 mL Syringe SUBCUT (09:05)
[2021-01-22 12:02] LABS: Glucose Point of Care 227 mg/dL (70-110)
[2021-01-22 12:05] LABS: ABG PCO2 58.4 mmHg (35-45); ABG PH Result 7.41 (7.35-7.45); Alveolar-Arterial Oxygen Gradi 6.5 mmHg (5-10); Arterial Blood Gas Hematocrit 22.7 % (42-52); Base Excess ABG 10.9 mmol/L (-2.0-2.0); Blood Gas Allen Test Pos; Blood Gas Operator Identificat MONRO; Blood Gas Sample Site Radial, right; Blood Gas Sample Type Arterial; Carboxyhemoglobin 1.4 %THgb (0.4-20.1); HCO3 ABG 36.8 mmol/L (22-26); HGB O2 Sat 93.1 % (95-100); Ionized Calcium Level - ABG 1.1 mmol/L (1.1-1.4); Methemoglobin 1.5 % (0.4-1.5); Oxygen Device NC; Oxygen Saturation ABG 95.9; PO2 ABG 79.5 mmHg (80.0-100.0); Total Hemoglobin 7.4 g/dL (14-18)
--- NOTE | 2021-01-22 13:19 | PM.PN ---
Subjective Subjective: Interval history: Seen this morning. Patient was sleeping and talking asleep when seen. Talk to respiratory therapist and she told me that earlier today patient was awake alert and talking and appropriate. He also had a sitter present in the room. His son reported that overnight patient tried to take up his BiPAP mask multiple times. Echo report is pending. ABG has been ordered. No other acute events overnight reported. Urine output 600 cc in Villatoro catheter. Had 1 bowel movement overnight. Vitals/I&O/Wt Last Vital Signs Temp 98.1 F 01/22/21 12:00 Pulse 66 01/22/21 12:00 Resp 18 01/22/21 12:00 BP 128/52 01/22/21 12:00 Pulse Ox 94 01/22/21 12:00 01/21/21 01/22/21 01/22/21 22:59 06:59 14:59 Intake Total 340 / 820 240 / 1060 650 / 650 Output Total 600 / 600 600 / 1200 Balance -260 / 220 -360 / -140 650 / 650 Physical Exam Narrative: EXAM NARRATIVE: General: On nasal cannula at this time, Chest: Clear to auscultation anterior lung hawthorne. Unable to auscultate posterior lung hawthorne today. CVS: S1-S2 regular, no murmurs, Abdomen: Soft, nontender, bowel sounds present, obese rounded abdomen Neuro: Able to move upper extremities, paraplegic, Has chronic Villatoro catheter Data : 01/22/21 05:28 01/22/21 05:28 Micro: Microbiology 01/20/21 01:36 Urine Culture - Preliminary Urine Catheterized Gram Negative Rods A&P Assessment and plan (1) Neurogenic bladder: Status: Acute (2) Pneumonia: Status: Acute (3) Anemia: Status: Acute (4) Stasis dermatitis: Status: Acute (5) Mild mental handicap: Status: Acute Additional A&P Information #Right lower lobe aspiration pneumonia #Hypercapnic respiratory failure on admission, on BiPAP. Now back to nasal cannula. #Diabetes mellitus #Intellectually disabled #Chronic indwelling Villatoro due to neurogenic bladder. #Paraplegia #Bilateral pleural effusions, cardiomegaly on x-ray #Iron deficiency anemia, no active bleeding or melena or hemoptysis Patient did have a choking episode on 01/08 and there was a change in diet done to mechanical soft consistency thereafter.. Continue IV Zosyn for now. Off note patient was on outpatient levofloxacin prior to arrival. ?Blood cultures negative to date, sputum Gram stain culture pending, MRSA PCR negative, urine bacterial Legionella antigens negative, Covid PCR negative ?Speech evaluation requested. No strokelike features nonfocal neuro exam. Dysphagia level 2 diet ordered. Continue patient on 4 L nasal cannula. ?We will need home oxygen evaluation at discharge ?Continue Villatoro catheter, urinalysis did not show leukocytosis. Patient has been covered with Zosyn for pneumonia at this time. Urinalysis did show gram-negative rods, culture sensitivity pending. ?Cardiomegaly on x-ray. Small to moderate right-sided pleural effusion and small left pleural effusions seen at admission. Repeat x-ray today shows pulmonary vascular congestion suggesting some degree of CHF. Infiltrate in right lower lobe cultures were not superimposed pneumonia. Small right basal pleural effusion. Overall very little change since prior study. Will increase Lasix to 40 twice daily today. ?Echocardiogram pending. BNP 1300 admission. Unsure if patient has diagnosis of heart failure from prior. Echo report pending. ?Hemoglobin 7.5 today. 7.2 on admission. FOBT pending. Iron studies support diagnosis of iron deficiency anemia. Will order Venofer 200 IV x3 days. - Vitamin B12 low at 160. Will order subcu B12 Full code Dysphagia level 2 diet. 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
[2021-01-22] MEDS: FUROsemide 10 mg/mL SDV 4mL 40 MG IVP (13:36)
[2021-01-22] MEDS: iron sucrose 200 MG in sodium chloride 0.9% (100 ml) 100 ML 220 MG IV (14:23)
[2021-01-22] MEDS: cyanocobalamin 1,000 mcg/mL SDV 1000 MCG SUBCUT (14:23)
[2021-01-22 17:11] LABS: Glucose Point of Care 144 mg/dL (70-110)
--- NOTE | 2021-01-22 17:55 | PC.NURSE ---
patient pulled out suprapubic catheter. Dr. Dalton notified and verbal order given to replace catheter. 18 camarena replaced using sterile technique. clear yellow urine returned. secured to right thigh with stat lock.
[2021-01-22 21:23] LABS: Glucose Point of Care 208 mg/dL (70-110)
[2021-01-23] VITALS (12 sets, daily range): BP systolic 118–148; BP diastolic 59–72; PULSE 63–93; RESP 16–25; TEMP 36.7–36.9; O2SAT 69–97
[2021-01-23] MEDS: FUROsemide 10 mg/mL SDV 4mL 40 MG IVP (01:42)
[2021-01-23] MEDS: piperacillin-tazobactam 3.375 GM in sodium chloride 0.9% (plus) 50 ML IV ×3 (01:47→17:53)
[2021-01-23] MEDS: ipratropium-albuterol 3 mL Neb INHALATION ×4 (03:41→20:53)
[2021-01-23 03:53] LABS: ABG PH Result 7.43 (7.35-7.45); Alveolar-Arterial Oxygen Gradi 6.7 mmHg (5-10); Base Excess ABG 14.7 mmol/L (-2.0-2.0); Blood Gas Allen Test Pos; Blood Gas Sample Site Radial, right; Blood Gas Sample Type Arterial; Carboxyhemoglobin 1.4 %THgb (0.4-20.1); HCO3 ABG 40.5 mmol/L (22-26); HGB O2 Sat 92.5 % (95-100); Ionized Calcium Level - ABG 1.1 mmol/L (1.1-1.4); Methemoglobin 1.7 % (0.4-1.5); Oxygen Device BIPAP; Oxygen Saturation ABG 95.4; PO2 ABG 73.7 mmHg (80.0-100.0); Potassium Level - ABG 3.8 mmol/L (3.5-5.0); Total Hemoglobin 6.5 g/dL (14-18)
[2021-01-23 03:57] LABS: ABG PCO2 61.4 mmHg (35-45)
--- NOTE | 2021-01-23 05:30 | PC.NURSE ---
SHIFT SUMMARY Has been confused tonight. Speech is mumbly & garbled at times. Hard to understand most of what he says. Talks to himself even when appears to be sleeping. Did let BIPAP be placed around 2330 and was able to keep it on him with redirecton numerous times. Had some agitation when first put on but calmed down and slept off and on. Remains on BIPAP at this time. ABG's this am continued to show PCO2 of 61.2. Also has tried to pull IV out and again required redirection. This nurse has been 1:1 sitter through shift. 1450ml urine output this shift. Receiving IV antibiotics and Lasix as ordered
[2021-01-23 06:22] LABS: Basophils % 0.5 %; Eosinophils # 0.2 10^3/uL (0.0-0.8); Eosinophils % 3.8 %; Hematocrit 28.8 % (42.0-52.0); Hemoglobin 7.4 g/dL (11.7-16.6); Lymphocytes # 0.6 10^3/uL (0.8-4.8); Lymphocytes % 8.7 %; Mean Corpuscular HGB Conc 25.7 g/dL (30.0-36.0); Mean Corpuscular Hemoglobin 20.5 pg (28.0-34.0); Mean Corpuscular Volume 79.8 fl (80-94); Mean Platelet Volume 10.1 fL (7.4-10.4); Monocytes # 0.6 10^3/uL (0.2-0.9); Monocytes % 8.7 %; Neutrophils # 4.92 10^3/uL (1.8-7.7); Nucleated Red Blood Cells % 0 %; Platelet Count 166 10^3/cmm (130-400); Red Blood Count 3.61 10^6/uL (4.1-5.3); Red Cell Distribution Width 17.5 % (12.1-15.1); White Blood Count 6.3 10^3/uL (4.0-10.0)
[2021-01-23 06:33] LABS: Anion Gap 15.1 (5-19); Blood Urea Nitrogen 16 mg/dL (8-23); Calcium 7.6 mg/dL (8.5-10.5); Carbon Dioxide 32 mmol/L (22-29); Chloride 101 mmol/L (98-107); Glucose 97 mg/dL (65-115); Magnesium 2.1 mg/dL (1.7-2.3); Osmolality Calculated 299 mOsm/kg (285-295); Potassium 4.1 mmol/L (3.5-5.1); Sodium 144 mmol/L (136-145)
[2021-01-23 06:47] LABS: Glucose Point of Care 137 mg/dL (70-110)
[2021-01-23] MEDS: enoxaparin 40 mg/0.4 mL Syringe SUBCUT (10:14)
[2021-01-23] MEDS: cyanocobalamin 1,000 mcg/mL SDV 1000 MCG SUBCUT (10:15)
[2021-01-23] MEDS: sucralfate 1 gm Tablet PO ×2 (10:15→17:51)
[2021-01-23] MEDS: lisinopril 2.5 mg Tablet PO (10:15)
[2021-01-23] MEDS: terazosin 5 mg Capsule PO (10:15)
[2021-01-23] MEDS: magnesium oxide 400 mg tablet PO (10:15)
[2021-01-23] MEDS: docusate sodium 100 mg Capsule PO (10:15)
[2021-01-23] MEDS: citalopram 20 mg Tablet 40 MG PO (10:15)
[2021-01-23] MEDS: pantoprazole DR 40 mg Tablet PO (10:16)
[2021-01-23] MEDS: atorvastatin 40 mg Tablet 20 MG PO (10:16)
--- NOTE | 2021-01-23 11:12 | PC.SOCIAL ---
IMM UPDATED IMM dated and initialed and copy given to patient
--- NOTE | 2021-01-23 11:24 | P.DS_ITS ---
Discharge Providers Date of Admission: 01/20/21 10:55 Date of Discharge: January 23, 2021 Attending Provider at Admission: Elle Mcclure MD Attending Provider at Discharge: Jeanne Dalton MD Primary Care Provider: Young Sotelo MD Diagnoses at Discharge Discharge Diagnosis (1) Neurogenic bladder: Status: Acute (2) Pneumonia: Status: Acute (3) Anemia: Status: Acute (4) Stasis dermatitis: Status: Acute (5) Mild mental handicap: Status: Acute Reason for Visit Reason for Visit: AMS Hospital Course Hospital Course HPI as per Dr. 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 At a baseline patient does communicate no with very simple words, able to make needs known such as hunger bowel movements is extra. Transfers with a walker at baseline does not ambulate very much. He is brought into the emergency room today due to complaints of difficulty breathing, hypoxia new oxygen requirement of 5 L/min on nasal cannula. This past week he was also being treated for a urinary tract infection with levofloxacin 750 mg p.o. daily. History is obtained by talking to nurse at [facility]. About 2 weeks ago patient had an episode of witnessed aspiration while he was eating a large piece of chicken. He was on a regular diet prior, after this event he was evaluated by swallow specialist and has been placed on a soft mechanical diet. Patient has a chronic indwelling Villatoro in place which is changed regularly. Chest x-ray today shows right lower lobe pneumonia with pleural effusion. ABG shows hypercapnic respiratory failure with pH 7.24, 80 point 4.8, he was thereafter placed on a BiPAP. He has been afebrile. No leukocytosis noted on labs from 01 18 and today. Noted to have anemia with hemoglobin 7.2, no recent noted melena or hemoptysis at the penitentiary. Last known baseline hemoglobin is ~9 last checked on November 15, 2020 He was tested with rapid Covid antigen this past week and was reportedly negative. PCR has been checked today and pending Course Patient was admitted for right lower lobe aspiration pneumonia. He also had hypoxia hypercapnic respiratory failure on admission he was placed on BiPAP and now back to nasal cannula. He was also diuresed with IV Lasix for his bilateral pleural effusions. He is now down to 2 to 3 L of oxygen. BNP was 1300 on admission. Echo was done during hospital stay which showed normal EF 55% with no regional wall motion abnormality. There was abnormal septal motion seen. Mildly reduced right ventricular systolic function. Patient does have history of obstructive sleep apnea and uses BiPAP at night. Dr. Sotelo is his primary care doctor. Patient did have a one-time temperature spike up to 100.2 3 days ago but later on has remained afebrile for the last 3 days. Patient's hemoglobin was also in the 7 range on admission and it stayed stable in that range during hospital stay. He was worked up and iron deficiency anemia was diagnosed. He is on iron orally at home. He was given IV Venofer during hospital stay. Vitamin B12 is also low and he was started on subcu B12 injections. He will need to follow-up with primary care to keep an eye on his hemoglobin, B12. Was also given follow-up with cardiology for follow-up regarding mild right-sided heart failure. I have increased his Lasix from 20 daily to 40 daily at this point. On physical exam he seems euvolemic and well diuresed. Covid test negative during hospital stay. WBC count normal. He will be discharged home on Augmentin to cover for aspiration pneumonia and UTI. Urine did grow Proteus mirabilis sensitive to Augmentin which can be possible co lonization due to his chronic suprapubic catheter. We did call the penitentiary and patient's baseline mental status is how he was in the hospital during the stay. Patient is able to make his needs known and can talk and basic vocabulary. He does tend to repeat the sentences over and over again and ask for coffee. He also fiddles with his catheter and sometimes pulls it out. At baseline he can transfer from bed to chair but cannot really walk without assistance. Patient was also seen by speech pathology while here. He was on a regular diet prior to arrival but now is on a dysphagia 2 ground diet. Patient was able to finish his breakfast on his own this morning and is in good spirits today. Plan is to discharge him back to [facility] with close follow-up with primary care. Physical Exam Narrative: EXAM NARRATIVE: General: Alert and oriented to self this morning, talking and asking for coffee on 2 L nasal cannula Chest: Clear to auscultation anterior lung hawthorne. Posterior lung hawthorne also mainly clear to auscultation. Mild crackles that were present in right lung base no longer really appreciated. Patient appears quite euvolemic today. CVS: S1-S2 regular, no murmurs, muffled heart sounds due to large body habitus Abdomen: Soft, nontender, bowel sounds present, obese rounded abdomen Neuro: Able to move upper extremities, nonfocal. Does have bilateral lower extremity weakness which is chronic. Has chronic Villatoro catheter and suprapubic region. New Villatoro was placed 01/22 since patient pulled it out. Discharge Data Data Completed and Pending: Completed Studies During Hospitalization Category Date Time Status CT head wo con* 7 0450 Urgent Cat Scan 01/20/21 01:10 Completed XR chest 1V roya ble [id number] Urgent Exams 01/20/21 01:10 Completed XR chest 1V roya ble [id number] Urgent Exams 01/22/21 08:10 Completed CV. echo limited [id number] Routine Ultrasound 01/21/21 06:00 Completed Pending at discharge Category Date Time Status Blood Culture Sta t Lab 01/20/21 02:36 Results Immunochemical Fe yung OCB Routine Lab 01/20/21 08:00 Uncollected Immunochemical Fe yung OCB Routine Lab 01/21/21 06:50 Uncollected Leukocyte Reduced RBC Routine Lab 01/20/21 02:30 Results Sputum Culture an d Gram Stain Routi ne Lab 01/20/21 07:46 Uncollected Type and Screen R outine Lab 01/20/21 02:30 Results Labs from last 24 hours 01/23/21 01/23/21 01/23/21 06:41 05:31 05:31 WBC 6.3 RBC 3.61 L Hgb 7.4 L Hct 28.8 L MCV 79.8 L MCH 20.5 L MCHC 25.7 L RDW 17.5 H Plt Count 166 MPV 10.1 Neut % (Auto) 78.0 Lymph % (Auto) 8.7 George % (Auto) 8.7 Eos % (Auto) 3.8 Baso % (Auto) 0.5 Neut # (Auto) 4.92 Lymph # (Auto) 0.6 L George # (Auto) 0.6 Eos # (Auto) 0.2 Baso # (Auto) 0.0 Nucleated RBC % (a uto) 0 Nucleated RBCs # 0.0 Specimen Type Sample Site ABG pH ABG pCO2 ABG pO2 ABG HCO3 ABG O2 Saturation ABG Base Excess Cedric Test A-a O2 Gradient Hematocrit Hgb O2 Saturation Carboxyhemoglobin Methemoglobin Total Hemoglobin Sodium 144 Potassium 4.1 Glucose 97 Ionized Calcium O2 Delivery Device O2 Liters/Min FiO2 Air Traffic Control Manager ID Chloride 101 Carbon Dioxide 32 H Anion Gap 15.1 BUN 16 Creatinine 0.7 GFR Calculation Not Reportable POC Glucose 137 H Calculated Osmolal ity 299 H Calcium 7.6 L Magnesium 2.1 01/23/21 01/22/21 01/22/21 04:00 21:14 17:07 WBC RBC Hgb Hct MCV MCH MCHC RDW Plt Count MPV Neut % (Auto) Lymph % (Auto) George % (Auto) Eos % (Auto) Baso % (Auto) Neut # (Auto) Lymph # (Auto) George # (Auto) Eos # (Auto) Baso # (Auto) Nucleated RBC % (a uto) Nucleated RBCs # Specimen Type Arterial Sample Site Radial, right ABG pH 7.43 ABG pCO2 61.4 H* ABG pO2 73.7 L ABG HCO3 40.5 H ABG O2 Saturation 95.4 ABG Base Excess 14.7 H Cedric Test Pos A-a O2 Gradient 6.7 Hematocrit 20.0 L Hgb O2 Saturation 92.5 L Carboxyhemoglobin 1.4 Methemoglobin 1.7 H Total Hemoglobin 6.5 L Sodium 144.0 H Potassium 3.8 Glucose 109.0 Ionized Calcium 1.1 O2 Delivery Device Bipap O2 Liters/Min FiO2 28.0 Air Traffic Control Manager ID [id number] Chloride Carbon Dioxide Anion Gap BUN Creatinine GFR Calculation POC Glucose 208 H 144 H Calculated Osmolal ity Calcium Magnesium 01/22/21 01/22/21 11:55 11:52 WBC RBC Hgb Hct MCV MCH MCHC RDW Plt Count MPV Neut % (Auto) Lymph % (Auto) George % (Auto) Eos % (Auto) Baso % (Auto) Neut # (Auto) Lymph # (Auto) George # (Auto) Eos # (Auto) Baso # (Auto) Nucleated RBC % (a uto) Nucleated RBCs # Specimen Type Arterial Sample Site Radial, right ABG pH 7.41 ABG pCO2 58.4 H ABG pO2 79.5 L ABG HCO3 36.8 H ABG O2 Saturation 95.9 ABG Base Excess 10.9 H Cedric Test Pos A-a O2 Gradient 6.5 Hematocrit 22.7 L Hgb O2 Saturation 93.1 L Carboxyhemoglobin 1.4 Methemoglobin 1.5 Total Hemoglobin 7.4 L Sodium 141.0 Potassium 4.0 Glucose 195.0 H Ionized Calcium 1.1 O2 Delivery Device Nc O2 Liters/Min 2.0 FiO2 28.0 Air Traffic Control Manager ID Monro Chloride Carbon Dioxide Anion Gap BUN Creatinine GFR Calculation POC Glucose 227 H Calculated Osmolal ity Calcium Magnesium Vitals: Last Vital Signs Temp 98.1 F 01/23/21 07:41 Pulse 63 01/23/21 08:53 Resp 17 01/23/21 08:48 BP 125/71 01/23/21 07:41 Pulse Ox 90 01/23/21 08:48 Discharge Plan Discharge Patient Disposition: Xfer SNF Condition: Stable Prescriptions: New cyanocobalamin (vitamin B-12) 1,000 mcg/mL Solution 1,000 mcg SUBCUT DAILY 5 Days Qty: 5 RF: 0 Augmentin 875-125 mg tablet 1 tab PO Q12H 5 Days Qty: 10 RF: 0 Continued citalopram 40 mg tablet 40 mg PO DAILY Qty: 30 RF: 0 terazosin 5 mg capsule 5 mg PO DAILY RF: 0 acetaminophen [Tylenol Extra Strength] 500 mg tablet 500 mg PO Q6H PRN (Reason: Pain, Mild) RF: 0 sucralfate [Carafate] 1 gram tablet 1 gm PO BID RF: 0 pravastatin [Pravachol] 40 mg tablet 40 mg PO DAILY RF: 0 metformin 500 mg tablet 500 mg PO BID RF: 0 docusate sodium [Colace] 100 mg capsule 100 mg PO DAILY RF: 0 lisinopril 2.5 mg tablet 2.5 mg PO DAILY RF: 0 ferrous sulfate 325 mg (65 mg iron) tablet 325 mg PO DAILY RF: 0 aspirin [Adult Aspirin Regimen] 81 mg tablet,delayed release (DR/EC) 81 mg PO DAILY RF: 0 triamcinolone acetonide 0.1 % ointment 1 applic topical BID Qty: 453.6 RF: 3 albuterol sulfate 90 mcg/actuation Hfa Aerosol Inhaler 1 puff INHALATION QID PRN (Reason: Wheezing) RF: 0 ondansetron 4 mg Tablet,Disintegrating 4 mg PO Q6H PRN (Reason: Nausea) RF: 0 levocetirizine 5 mg Tablet 5 mg PO DAILY RF: 0 Changed Lasix 20 mg tablet 40 mg PO DAILY Qty: 0 RF: 0 Held magnesium oxide 400 mg (241.3 mg magnesium) tablet 400 mg PO DAILY RF: 0 Hold Instructions: see pcp Discontinued levofloxacin 750 mg tablet 750 mg PO DAILY 7 Days Qty: 7 RF: 0 potassium chloride 10 mEq capsule, extended release 10 meq PO DAILY RF: 0 Reokern-Dunaojt-Wefqtdyxtrqnec 90-60-800 mg Tablet Extended Release 12 Hr 1 tab PO QID RF: 0 Discharge Orders: Discharge Order (Routine); Ordered 01/23/21 Ordered By: Jeanne Dalton Other Ambulatory Orders: Basic Metabolic Panel (Routine) Timeframe: 1 Week Facility: [facility] - Location: Lab - Main Lab Ordered By: Jeanne Dalton Complete Blood Count w/Auto (Routine) Timeframe: 1 Week Location: Determined by Patient Ordered By: Jeanne Dalton Referrals: Young Sotelo MD [Primary Care Provider] - 1 week Discharge Activity: Resume usual activity Patient Instructions: Amoxicillin/Clavulanate Potassium (By mouth), Vitamin B- 12 (By mouth) Activity Restrictions/Additional Instructions: Dysphagia level 2 diet - ground Discharge Attestations Time Spent in Discharge Care*: greater than 30 min Coding Level of Care Code Acute Chg FW FL note Diagnoses Neurogenic bladder N31.9 Pneumonia J18.9 Anemia D64.9 Stasis dermatitis I87.2 Mild mental handicap F70
--- NOTE | 2021-01-23 11:41 | CT_ITS ---
WS: [id number] CT CHEST TECHNIQUE: Noncontrast CT of the chest with coronal and sagittal reformatted images. CLINICAL INFORMATION: Pleural effusions, pneumonia COMPARISON: None. DLP: 902.[address] scans at [facility] use at least one of these dose optimization techniques: automated e xposure control; mA and/or kV adjustment per patient size (includes targeted exams where dose is matc hed to clinical indication); or iterative reconstruction. FINDINGS: Small to moderate right and small left pleural effusions. Compressive atelectasis right greater than left lower lobes. Subsegmental atelectasis in the lung bases. Upper lobes are better aerated. Tiny pericardial effusion. Coronary calcification. Normal caliber tho racic aorta. Air-fluid level in the thoracic esophagus. Moderate esophageal hiatal hernia. Adrenal gl ands are normal. Vascular calcification. Moderate thoracic kyphosis. Hypertrophic changes thoracic sp ine. CT/CT chest wo con [id number] IMPRESSION: 1. Small to moderate right and small left pleural effusions with compressive a telectasis in the lung bases. 2. Small pericardial effusion. 3. Moderate esophageal hiatal hernia with air-fluid levels in the thoracic eso phagus. 4. No mediastinal or hilar lymphadenopathy. 5. Coronary calcification.
--- NOTE | 2021-01-23 11:42 | PM.PN ---
Subjective Subjective: Interval history: Seen this morning. Patient still requiring 2 L of nasal cannula. His mental status is at baseline however. He is asking for coffee today. He was able to finish his own breakfast as well. Events noted from yesterday patient pulled out his suprapubic catheter but we were able to successfully reinserted. Vitals/I&O/Wt Last Vital Signs Temp 98.1 F 01/23/21 11:33 Pulse 77 01/23/21 11:33 Resp 20 H 01/23/21 11:33 BP 132/59 01/23/21 11:33 Pulse Ox 90 01/23/21 11:33 01/22/21 01/23/21 01/23/21 22:59 06:59 14:59 Intake Total 460 / 1880 100 / 1980 480 / 480 Output Total 1450 / 1450 Balance 460 / 1880 -1350 / 530 480 / 480 Physical Exam Narrative: EXAM NARRATIVE: EXAM NARRATIVE: General: Alert and oriented to self this morning, talking and asking for coffee on 2 L nasal cannula Chest: Clear to auscultation anterior lung hawthorne. Posterior lung hawthorne also mainly clear to auscultation. Mild crackles that were present in right lung base no longer really appreciated. Patient appears quite euvolemic today. CVS: S1-S2 regular, no murmurs, muffled heart sounds due to large body habitus Abdomen: Soft, nontender, bowel sounds present, obese rounded abdomen Neuro: Able to move upper extremities, nonfocal. Does have bilateral lower extremity weakness which is chronic. Has chronic Villatoro catheter and suprapubic region. New Villatoro was placed 01/22 since patient pulled it out. Data : 01/23/21 05:31 01/23/21 05:31 Micro: Microbiology 01/20/21 01:36 Urine Culture - Final Urine Catheterized Proteus mirabilis A&P Assessment and plan (1) Neurogenic bladder: Status: Acute (2) Pneumonia: Status: Acute (3) Anemia: Status: Acute (4) Stasis dermatitis: Status: Acute (5) Mild mental handicap: Status: Acute Additional A&P Information #Right lower lobe aspiration pneumonia #Hypercapnic respiratory failure on admission, on BiPAP. Now back to nasal cannula. #Diabetes mellitus #Intellectually disabled #Chronic indwelling Villatoro due to neurogenic bladder. #Paraplegia #Bilateral pleural effusions, cardiomegaly on x-ray #Iron deficiency anemia, no active bleeding or melena or hemoptysis #Right sided heart failure Patient did have a choking episode on 01/08 and there was a change in diet done to mechanical soft consistency thereafter.. Continue IV Zosyn for now. Off note patient was on outpatient levofloxacin prior to arrival. ?Blood cultures negative to date, sputum Gram stain culture pending, MRSA PCR negative, urine bacterial Legionella antigens negative, Covid PCR negative ?Speech evaluation requested. No strokelike features nonfocal neuro exam. Dysphagia level 2 diet ordered. Continue patient on 3 L nasal cannula. ?We will need home oxygen evaluation at discharge ?Continue Villatoro catheter, urinalysis did not show leukocytosis. Patient has been covered with Zosyn for pneumonia at this time. Urinalysis did show gram-negative rods, culture sensitivity pending. ?Cardiomegaly on x-ray. Small to moderate right-sided pleural effusion and small left pleural effusions seen at admission. I will do a CT chest without contrast today to evaluate pleural effusions and pneumonia status. If unresolved even with diuresis for been doing we might need to do thoracentesis. ?Echocardiogram pending. BNP 1300 admission. Unsure if patient has diagnosis of heart failure from prior. Echo report does show mild right-sided heart failure. Continue Lasix 40 IV daily. ?Hemoglobin 7.5 today. 7.2 on admission. FOBT pending. Iron studies support diagnosis of iron deficiency anemia. Continue Venofer 200 IV x3 days. - Vitamin B12 low at 160. Continue subcu B12 Full code Dysphagia level 2 diet. dct ppx lovenox Attestations Medical Necessity Statement*: > 48 hours stay. Still requiring oxygen Coding Level of Care Code Acute Senior Automation Engineer for Chg Fwd Diagnoses Neurogenic bladder N31.9 Pneumonia J18.9 Anemia D64.9 Stasis dermatitis I87.2 Mild mental handicap F70
[2021-01-23 11:44] LABS: Glucose Point of Care 179 mg/dL (70-110)
[2021-01-23] MEDS: insulin lispro 100 unit/1 mL SUBCUT ×3 (12:37→22:19)
[2021-01-23] MEDS: iron sucrose 200 MG in sodium chloride 0.9% (100 ml) 100 ML 220 MG IV (13:29)
[2021-01-23 16:38] LABS: Glucose Point of Care 251 mg/dL (70-110)
--- NOTE | 2021-01-23 17:26 | CTR_ITS ---
PROCEDURE INFORMATION: Exam: CTA Chest With Contrast Exam date and time: 01/23/2021 5:26 PM Age: 80 years old Clinical indication: Shortness of breath; Prior surgery; Surgery type: Egd, hernia, gb; Additional info: Rule out pe TECHNIQUE: Imaging protocol: Computed tomographic angiography of the chest with contrast. 3D rendering (Not supervised by radiologist): MIP and/or 3D reconstructed images were created by the technologist. Radiation optimization: All CT scans at this facility use at least one of these dose optimization techniques: automated exposure control; mA and/or kV adjustment per patient size (includes targeted exams where dose is matched to clinical indication); or iterative reconstruction. Contrast material: OMNI 350; Contrast volume: 95 ml; Contrast route: INTRAVENOUS (IV); COMPARISON: CT chest wo [facility] [id number] 01/23/2021 1:16 PM RADIATION DOSE METRICS: Total DLP (mGy-cm): 3511.39 FINDINGS: Pulmonary arteries: Normal. No pulmonary emboli. Aorta: Unremarkable. No aortic aneurysm. No aortic dissection. Lungs: Patchy bilateral atelectasis versus infiltrate appears largely dependent. Pleural spaces: Moderate bilateral pleural effusions. Heart: Coronary artery atherosclerotic calcifications. Lymph nodes: Unremarkable. No enlarged lymph nodes. Diaphragm: Moderate hiatal hernia. Spleen: Spleen enlarged to 17 cm. Bones/joints: Unremarkable. No acute fracture. Soft tissues: Unremarkable. CT/CT angio chest [id number] IMPRESSION: 1. Negative for pulmonary embolus. 2. Moderate bilateral pleural effusions. 3. Moderate hiatal hernia. 4. Coronary artery atherosclerotic calcifications. 5. Spleen enlarged to 17 cm. 6. Patchy bilateral atelectasis versus infiltrate appears largely dependent.
[2021-01-23] MEDS: iohexol 350 mg/mL 100 mL Btl IV ×2 (18:13→18:14)
[2021-01-23 22:12] LABS: Glucose Point of Care 162 mg/dL (70-110)
[2021-01-24] VITALS (15 sets, daily range): BP systolic 117–174; BP diastolic 57–96; PULSE 67–83; RESP 4–22; TEMP 36.6–37.5; O2SAT 90–98
[2021-01-24] MEDS: piperacillin-tazobactam 3.375 GM in sodium chloride 0.9% (plus) 50 ML IV ×3 (02:51→19:00)
[2021-01-24] MEDS: ipratropium-albuterol 3 mL Neb INHALATION ×4 (03:13→21:12)
[2021-01-24 07:39] LABS: Glucose Point of Care 123 mg/dL (70-110)
[2021-01-24] MEDS: enoxaparin 40 mg/0.4 mL Syringe SUBCUT (10:42)
[2021-01-24] MEDS: sucralfate 1 gm Tablet PO ×2 (10:43→19:06)
[2021-01-24] MEDS: lisinopril 2.5 mg Tablet PO (10:43)
[2021-01-24] MEDS: citalopram 20 mg Tablet 40 MG PO (10:43)
[2021-01-24] MEDS: pantoprazole DR 40 mg Tablet PO (10:43)
[2021-01-24] MEDS: docusate sodium 100 mg Capsule PO (10:43)
[2021-01-24] MEDS: magnesium oxide 400 mg tablet PO (10:43)
[2021-01-24] MEDS: FUROsemide 10 mg/mL SDV 4mL 40 MG IVP ×2 (10:44→19:04)
[2021-01-24] MEDS: atorvastatin 40 mg Tablet 20 MG PO (10:44)
[2021-01-24] MEDS: cyanocobalamin 1,000 mcg/mL SDV 1000 MCG SUBCUT (10:44)
[2021-01-24 11:28] LABS: Basophils % 0.1 %; Eosinophils # 0.2 10^3/uL (0.0-0.8); Eosinophils % 2.1 %; Hematocrit 28.1 % (42.0-52.0); Hemoglobin 7.3 g/dL (11.7-16.6); Lymphocytes # 0.5 10^3/uL (0.8-4.8); Lymphocytes % 6.1 %; Mean Corpuscular Hemoglobin 20.8 pg (28.0-34.0); Mean Corpuscular Volume 80.1 fl (80-94); Monocytes # 0.6 10^3/uL (0.2-0.9); Monocytes % 7.6 %; Neutrophils # 6.63 10^3/uL (1.8-7.7); Neutrophils % 83.6 %; Nucleated Red Blood Cells % 0 %; Platelet Count 169 10^3/cmm (130-400); Red Blood Count 3.51 10^6/uL (4.1-5.3); Red Cell Distribution Width 17.5 % (12.1-15.1); White Blood Count 7.9 10^3/uL (4.0-10.0)
[2021-01-24 11:54] LABS: INR 1.16 (0.8-1.2)
[2021-01-24 11:56] LABS: Anion Gap 9.1 (5-19); Blood Urea Nitrogen 16 mg/dL (8-23); Calcium 7.8 mg/dL (8.5-10.5); Carbon Dioxide 37 mmol/L (22-29); Chloride 103 mmol/L (98-107); Glucose 104 mg/dL (65-115); Magnesium 2.2 mg/dL (1.7-2.3); Osmolality Calculated 301 mOsm/kg (285-295); Potassium 4.1 mmol/L (3.5-5.1); Sodium 145 mmol/L (136-145)
[2021-01-24 12:17] LABS: Glucose Point of Care 124 mg/dL (70-110)
--- NOTE | 2021-01-24 13:38 | P.PN_ITS ---
Subjective Subjective: Interval history: Seen this morning. Patient's mental status is at baseline. He is quite pleasant wearing BiPAP. He is asking for coffee once again. No acute events overnight noted. Still on 3 L nasal cannula. CTA chest done yesterday rule out pulmonary embolism but did show bilateral moderate pleural effusions. He will be going for thoracentesis today. Vitals/I&O/Wt Last Vital Signs Temp 98.7 F 01/24/21 11:58 Pulse 67 01/24/21 11:58 Resp 20 H 01/24/21 11:58 BP 136/85 01/24/21 11:58 Pulse Ox 96 01/24/21 11:58 01/23/21 01/24/21 01/24/21 22:59 06:59 14:59 Intake Total 197.083 / 1290.000 50 / 50 Output Total 300 / 1050 Balance -102.917 / 240.000 50 / 50 Physical Exam Narrative: EXAM NARRATIVE: EXAM NARRATIVE: General: Alert and oriented to self this morning Chest: Clear to auscultation anterior lung hawthorne. Unable to auscultate posterior lung field as patient was laying flat in bed. Hard to assess volume status today. He did not want me to elevate head of bed during examination. CVS: S1-S2 regular, no murmurs, muffled heart sounds due to large body habitus Abdomen: Soft, nontender, bowel sounds present, obese rounded abdomen Neuro: Able to move upper extremities, nonfocal. Does have bilateral lower extremity weakness which is chronic. Has chronic Villatoro catheter and suprapubic region. New Villatoro was placed 01/22 since patient pulled it out. Data : 01/24/21 11:03 01/24/21 11:03 A&P Assessment and plan (1) Neurogenic bladder: Status: Acute (2) Pneumonia: Status: Acute (3) Anemia: Status: Acute (4) Stasis dermatitis: Status: Acute (5) Mild mental handicap: Status: Acute Additional A&P Information #Right lower lobe aspiration pneumonia #Hypercapnic respiratory failure on admission, on BiPAP. Now back to nasal cannula. #Diabetes mellitus #Intellectually disabled #Chronic indwelling Villatoro due to neurogenic bladder. #Paraplegia #Bilateral pleural effusions, cardiomegaly on x-ray #Iron deficiency anemia, no active bleeding or melena or hemoptysis #Right sided heart failure Patient did have a choking episode on 01/08 and there was a change in diet done to mechanical soft consistency thereafter.. Continue IV Zosyn for now. Off note patient was on outpatient levofloxacin prior to arrival. ?Blood cultures negative to date, sputum Gram stain culture pending, MRSA PCR negative, urine bacterial Legionella antigens negative, Covid PCR negative ?Speech evaluation requested. No strokelike features nonfocal neuro exam. Dysphagia level 2 diet ordered. Continue patient on 3 L nasal cannula. ?We will need home oxygen evaluation at discharge ?Continue Villatoro catheter, urinalysis did not show leukocytosis. Patient has been covered with Zosyn for pneumonia at this time. Urinalysis did show Proteus mirabilis sensitive to Zosyn. ?Cardiomegaly on x-ray. Moderate bilateral pleural effusion seen on CTA chest performed yesterday evening. Thoracentesis has been ordered for diagnostic and therapeutic purposes. I expect the fluid to be transudate but will send for cytology and rule out. ?Echocardiogram pending. BNP 1300 admission. Unsure if patient has diagnosis of heart failure from prior. Echo report does show mild right-sided heart failure. LV function appears to be normal at 55% but it was a poor study. Abnormal septal motion also noted. I will continue to diurese the patient with Lasix 40 IV twice daily at this point. ?Hemoglobin 7.5 today. 7.2 on admission. FOBT pending. Iron studies support diagnosis of iron deficiency anemia. Continue Venofer 200 IV x3 days. - Vitamin B12 low at 160. Continue subcu B12 Full code Dysphagia level 2 diet. dct ppx lovenox Called brother Mello Felder updated him. Him and his are both DPOA. Also he gave conset for thoracentesis for pateint. Ok to proceed. Attestations Medical Necessity Statement*: Greater than 48-hour stay. Requires IV diuresis and thoracentesis. Coding Level of Care Code Acute Library Specialist for g Fwd Diagnoses Neurogenic bladder N31.9 Pneumonia J18.9 Anemia D64.9 Stasis dermatitis I87.2 Mild mental handicap F70
[2021-01-24] MEDS: terazosin 5 mg Capsule PO (14:02)
--- NOTE | 2021-01-24 17:26 | USCV_ITS ---
BowenKelton ortiz Age: 80 Gender: M : 1940 Exam Date: 01/24/2021 07:24 Ordering Phys: Jeanne Dalton MD Technologist: Andriy Doan [place]am Location[place] [facility] [place]ication: rule out dvt PROCEDURES: Venous duplex imaging was performed in bilateral lower extremities. The following venous structures were evaluated: common femoral vein, profunda vein, proximal portion of the greater saphenous vein, superficial femoral vein, and the popliteal vein. In addition, the posterior tibial and peroneal trunk were evaluated. Serial compression, augmentation maneuvers, and spectral Doppler flow evaluation were performed. FINDINGS: Normal 2-D Doppler and augmentation and compressibility throughout the right lower extremity venous structures. Additional imaging through the proximal calf veins also reveals no thrombus. Limited evaluation of the greater saphenous vein is patent with no thrombus.. Within the left lower extremity tech was unable to finish exam due to patient yelling at tech You're hurting my legs! All veins that were able to be examined in the left lower extremity appear to be free of thrombus at this time. CONCLUSIONS No DVT right lower extremity. Limited evaluation of left lower extremity due to patient discomfort. Dr. Yany Holman DO (Electronically Signed) Final Date: 25 January 2021 07:40 S
[2021-01-24 18:04] LABS: Glucose Point of Care 315 mg/dL (70-110)
[2021-01-24] MEDS: insulin lispro 100 unit/1 mL SUBCUT ×2 (19:06→22:03)
[2021-01-24 21:46] LABS: Glucose Point of Care 268 mg/dL (70-110)
[2021-01-24] MEDS: lactulose oral liq 20 gm/30 mL UDC PO (22:03)
[2021-01-25] VITALS (18 sets, daily range): BP systolic 93–172; BP diastolic 53–98; PULSE 66–100; RESP 18–26; TEMP 36.4–37.1; O2SAT 86–98
[2021-01-25] MEDS: piperacillin-tazobactam 3.375 GM in sodium chloride 0.9% (plus) 50 ML IV ×3 (02:58→18:25)
[2021-01-25] MEDS: ipratropium-albuterol 3 mL Neb INHALATION ×4 (03:07→19:47)
[2021-01-25 04:32] LABS: ABG PH Result 7.36 (7.35-7.45); Arterial Blood Gas Hematocrit 24.7 % (42-52); Base Excess ABG 12.6 mmol/L (-2.0-2.0); Blood Gas Sample Site Radial, left; Blood Gas Sample Type Arterial; Carboxyhemoglobin 1.7 %THgb (0.4-20.1); HCO3 ABG 39.8 mmol/L (22-26); HGB O2 Sat 91.7 % (95-100); Ionized Calcium Level - ABG 1.2 mmol/L (1.1-1.4); Methemoglobin 1.4 % (0.4-1.5); Oxygen Device NC; Oxygen Saturation ABG 94.7; PO2 ABG 77.1 mmHg (80.0-100.0); Potassium Level - ABG 3.4 mmol/L (3.5-5.0); Total Hemoglobin 8.1 g/dL (14-18)
[2021-01-25 06:40] LABS: Basophils % 0.1 %; Eosinophils # 0.1 10^3/uL (0.0-0.8); Eosinophils % 1.1 %; Hematocrit 30.5 % (42.0-52.0); Hemoglobin 7.7 g/dL (11.7-16.6); Lymphocytes # 0.4 10^3/uL (0.8-4.8); Lymphocytes % 5.4 %; Mean Corpuscular HGB Conc 25.2 g/dL (30.0-36.0); Mean Corpuscular Hemoglobin 20.5 pg (28.0-34.0); Mean Corpuscular Volume 81.3 fl (80-94); Mean Platelet Volume 10.9 fL (7.4-10.4); Monocytes # 0.6 10^3/uL (0.2-0.9); Monocytes % 7.4 %; Neutrophils # 6.51 10^3/uL (1.8-7.7); Neutrophils % 85.6 %; Nucleated Red Blood Cells % 0 %; Platelet Count 183 10^3/cmm (130-400); Red Blood Count 3.75 10^6/uL (4.1-5.3); Red Cell Distribution Width 17.9 % (12.1-15.1); White Blood Count 7.6 10^3/uL (4.0-10.0)
[2021-01-25 07:09] LABS: Anion Gap 14.5 (5-19); Blood Urea Nitrogen 24 mg/dL (8-23); Calcium 7.8 mg/dL (8.5-10.5); Carbon Dioxide 33 mmol/L (22-29); Chloride 103 mmol/L (98-107); Glucose 108 mg/dL (65-115); Magnesium 2.4 mg/dL (1.7-2.3); Osmolality Calculated 309 mOsm/kg (285-295); Potassium 3.5 mmol/L (3.5-5.1); Sodium 147 mmol/L (136-145)
[2021-01-25] MEDS: sucralfate 1 gm Tablet PO (09:12)
[2021-01-25] MEDS: enoxaparin 40 mg/0.4 mL Syringe SUBCUT (09:12)
[2021-01-25] MEDS: lisinopril 2.5 mg Tablet PO (09:12)
[2021-01-25] MEDS: magnesium oxide 400 mg tablet PO (09:12)
[2021-01-25] MEDS: docusate sodium 100 mg Capsule PO (09:12)
[2021-01-25] MEDS: pantoprazole DR 40 mg Tablet PO (09:12)
[2021-01-25] MEDS: atorvastatin 40 mg Tablet 20 MG PO (09:12)
[2021-01-25] MEDS: citalopram 20 mg Tablet 40 MG PO (09:12)
[2021-01-25] MEDS: FUROsemide 10 mg/mL SDV 4mL 40 MG IVP (09:12)
[2021-01-25] MEDS: terazosin 5 mg Capsule PO (09:12)
[2021-01-25] MEDS: cyanocobalamin 1,000 mcg/mL SDV 1000 MCG SUBCUT (09:13)
[2021-01-25] MEDS: ondansetron 2 mg/ML SDV 2 mL 4 MG IVP (09:34)
[2021-01-25 10:24] LABS: ABG PCO2 70.8 mmHg (35-45)
--- NOTE | 2021-01-25 11:48 | XR_ITS ---
WS: [id number] PORTABLE CHEST HISTORY: assess pleural effusions COMPARISON: 01/22/2021 Lung volumes are decreased. Increasing opacification in the central RIGHT lung and at the RIGHT lung base. There is mild pulmonary venous congestion noted. Small RIGHT pleural effusion. No significant L EFT pleural effusion radiographically. Cardiac size: Mildly enlarged cardiac silhouette. Mediastinum/Aorta: Mild atherosclerosis aorta. Suspect there is a small hiatal hernia. No osseous abnormality seen. XR/XR chest 1V portable [id number] IMPRESSION: 1. Increasing pneumonia RIGHT lung. 2. Small RIGHT pleural effusion. 3. Mild cardiomegaly.
[2021-01-25] MEDS: FUROsemide 10 mg/mL SDV 4mL 60 MG IVP ×2 (12:08→18:26)
[2021-01-25] MEDS: insulin lispro 100 unit/1 mL SUBCUT ×2 (12:09→18:29)
[2021-01-25 12:15] LABS: Glucose Point of Care 252 mg/dL (70-110)
[2021-01-25 12:15] LABS: Glucose Point of Care 324 mg/dL (70-110)
--- NOTE | 2021-01-25 12:31 | PC.NURSE ---
bladder scanned per doctors orders, 33mL noted, flushed catheter with 50mL easily drained in returned.
[2021-01-25 12:55] LABS: Estmated Average Glucose 177; Hemoglobin A1C 7.8 % (4.0-6.0)
--- NOTE | 2021-01-25 13:06 | PM.PN ---
Subjective Subjective: Interval history: Patient was seen early childhood today and at that time he did take his pills and drink water. He was awake. Nursing staff reported that he did not wear his BiPAP all night last night. When I saw him he was a little bit nauseous but did not vomit. ABG this morning was 7.36/70. He was well compensated. Urine output 600 cc. He is on Lasix 40 IV twice daily. Brother available at bedside was updated in detail regarding the plan. Plan was to do thoracentesis today. However after discussing the case with instrument and electrical technician Dr. Massey and reviewing today's x-ray it was decided not to do thoracentesis at the pleural effusions have improved with diuresis. Thoracentesis was canceled. Around noon I was notified by nurse that patient is unresponsive. Blood gas was drawn pH 7.1/119. Patient was on BiPAP already. Settings were changed to 22/5 and adjustments were made with respiratory therapist. Dr. Massey was present bedside. EKG was done all labs repeated. Unsure if patient had aspirated at the time. We remained at bedside for almost 45 minutes and held the BiPAP mask on patient's face to try to improve ventilation. Patient was at first waking up to sternal rub but later did start opening his eyes. He was also given flumazenil and Narcan during this time. Medications were reviewed and patient did not get any opiates or Xanax overnight. There was suspicion that he might have aspirated again. Bedside bronchoscopy was also considered but ultimately not performed as patient did improve slightly. Repeat gas was 7.2/80. BiPAP will be continued at this time. Patient's brother Mello was called by myself and by Dr. Massey. Mr. Mello Schroeder has clearly stated that patient is to remain DNR/DNI and if our efforts above do not work then we can transition to comfort care measures. All questions were answered to his satisfaction. His was also present over the phone. Mr. Sarkar and his are both DPOA for the patient. Gas will be repeated in another hour. Vitals/I&O/Wt Last Vital Signs Temp 98.0 F 01/25/21 16:00 Pulse 66 01/25/21 16:01 Resp 20 H 01/25/21 16:00 BP 97/60 01/25/21 16:00 Pulse Ox 90 01/25/21 16:00 01/25/21 01/25/21 01/25/21 06:59 14:59 22:59 Intake Total 190 / 800 630 / 630 Balance 190 / 800 630 / 630 Physical Exam Narrative: EXAM NARRATIVE: EXAM NARRATIVE: General: Alert and oriented to self this morning however later on in the afternoon unresponsive and only awakening on sternal rub. Chest: Clear to auscultation anterior lung hawthorne. Very diminished bilateral air entry when seen around the afternoon however this morning lungs were clear to auscultation with better air entry. 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 Patient is unresponsive otherwise. Not moving lower extremities or arms when seen in the afternoon. Has chronic Villatoro catheter and suprapubic region. New Villatoro was placed 01/22 since patient pulled it out. Villatoro was also flushed and check for flow. 200 cc came out. Data : 01/25/21 14:00 01/25/21 14:00 Micro: Microbiology 01/20/21 02:36 Blood Culture - Final Blood NO GROWTH AFTER 5 DAYS 01/20/21 02:34 Blood Culture - Final Blood NO GROWTH AFTER 5 DAYS A&P Assessment and plan (1) Neurogenic bladder: Status: Acute (2) Pneumonia: Status: Acute (3) Anemia: Status: Acute (4) Stasis dermatitis: Status: Acute (5) Mild mental handicap: Status: Acute Additional A&P Information #Right lower lobe aspiration pneumonia #Acute hypercapnic respiratory failure on BiPAP. Period of unresponsiveness. Possible reaspiration. #Diabetes mellitus #Intellectually disabled #Chronic indwelling Villatoro due to neurogenic bladder. #Paraplegia #Bilateral pleural effusions, cardiomegaly on x-ray. Effusions have improved. #Iron deficiency anemia, no active bleeding or melena or hemoptysis #Right sided heart failure Patient did have a choking episode on 01/08 and there was a change in diet done to mechanical soft consistency thereafter.. Continue IV Zosyn for now. Off note patient was on outpatient levofloxacin prior to arrival. ?Blood cultures negative to date, sputum Gram stain culture pending, MRSA PCR negative, urine bacterial Legionella antigens negative, Covid PCR negative ?Speech evaluation requested. No strokelike features nonfocal neuro exam. Dysphagia level 2 diet ordered initially was switched to pur?ed diet. Patient on BiPAP setting 07/07. Had period of unresponsiveness today with pH 7.1/119. On BiPAP now. We will watch for improvement. Have discussed with family at length by myself and Dr. Massey. Patient remained DNR/DNI. If he does not improve with BiPAP or worsens they will ensue comfort care measures. Right now patient is on BiPAP and the second gas obtained does look a little improved. We will check another gas around 7 PM. If further deterioration family will need to be recalled and potentially consider comfort care measures. -WBC count in afternoon today 10.4. Patient may have reaspirated. He does have a large hiatal hernia. He probably has been having microaspiration's. Continue on Zosyn for now. ?Continue Villatoro catheter, urinalysis did not show leukocytosis. Patient has been covered with Zosyn for pneumonia at this time. Urinalysis did show Proteus mirabilis sensitive to Zosyn. ?Cardiomegaly on x-ray. Moderate bilateral pleural effusion seen on CTA chest performed 01/23. However effusion does look improved on x-ray from today. There is minimal on left side and a little bit more on the right side. Have discussed with Dr. Massey and we do not believe the effusion is enough for us to do a thoracentesis on the patient at this time. Therefore we will continue with the IV diuresis. ?Echocardiogram complete BNP 1300 admission. Unsure if patient has diagnosis of heart failure from prior. Echo report does show mild right-sided heart failure. LV function appears to be normal at 55% but it was a poor study. Abnormal septal motion also noted. I will continue to diurese the patient with Lasix 40 IV twice daily at this point. ?Hemoglobin 7.5 today. 7.2 on admission. FOBT pending. Iron studies support diagnosis of iron deficiency anemia. Continue Venofer 200 IV x3 days. - Vitamin B12 low at 160. Continue subcu B12 DNR/DNI. Pur?ed diet. But will keep n.p.o. for now due to patient's current status. dct ppx lovenox Patient's brother and brother's are both DPOA's and have been updated extensively over the phone by Dr. Massey and myself. We will continue with BiPAP for now and check another gas. If no improvement family would like to pursue comfort care. Attestations Medical Necessity Statement*: > 48 hour stay Coding Level of Care Code Acute Printed Circuit Boards Laminator for g Fwd Diagnoses Neurogenic bladder N31.9 Pneumonia J18.9 Anemia D64.9 Stasis dermatitis I87.2 Mild mental handicap F70
[2021-01-25 13:34] LABS: Alveolar-Arterial Oxygen Gradi 14.3 mmHg (5-10); Arterial Blood Gas Hematocrit 24.3 % (42-52); Base Excess ABG 7.1 mmol/L (-2.0-2.0); Blood Gas Allen Test Pos; Blood Gas Operator Identificat MONRO; Blood Gas Sample Site Radial, left; Blood Gas Sample Type Arterial; Carboxyhemoglobin 1.5 %THgb (0.4-20.1); HCO3 ABG 38.3 mmol/L (22-26); HGB O2 Sat 92.9 % (95-100); Ionized Calcium Level - ABG 1.2 mmol/L (1.1-1.4); Methemoglobin 1.1 % (0.4-1.5); Oxygen Device BIPAP; Oxygen Saturation ABG 95.4; Potassium Level - ABG 3.2 mmol/L (3.5-5.0); Total Hemoglobin 7.9 g/dL (14-18)
[2021-01-25 13:36] LABS: ABG PH Result 7.11 (7.35-7.45)
--- NOTE | 2021-01-25 13:40 | XR_ITS ---
WS: [id number] PORTABLE CHEST HISTORY: decreasing oxygen saturation COMPARISON: 01/25/2021 and 01/22/2021 Mild progression of scattered opacifications. Suspect mild increase in fluid overload. Small RIGHT pl eural effusion. No pneumothorax. Cardiac size: Mildly enlarged cardiac silhouette. Mediastinum/Aorta: Mild atherosclerosis aorta. Small hiatal hernia. No osseous abnormality seen. XR/XR chest 1V portable [id number] IMPRESSION: 1. Small RIGHT pleural effusion. 2. Slight increase in bilateral opacifications which are likely pneumonia or e ora.
[2021-01-25 13:50] LABS: Glucose Point of Care 232 mg/dL (70-110)
--- NOTE | 2021-01-25 13:51 | ECG_ITS ---
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 Measurements Intervals [place] Rate: 86 P: 14 WV: 189 QRS: 18 QRSD: 145 T: 1 QT: 439 QTc: 528 Interpretive Statements SINUS RHYTHM WITH OCCASIONAL VENTRICULAR PREMATURE COMPLEXES WITH FREQUENT SUPRAVENTRICULAR PREMATURE COMPLEXES INTRAVENTRICULAR CONDUCTION DELAY [130+ ms QRS DURATION] POSSIBLE ANTERIOR MYOCARDIAL INFARCTION , PROBABLY OLD [30 ms Q WAVE IN V3/V4, OR R < 0.2 mV IN V4] Compared to ECG 01/20/2021 03:24:18 Ventricular premature complex(es) now present Intraventricular conduction delay now present Myocardial infarct finding now present Right bundle-branch block no longer present Electronically Signed On 01-26-2021 7:36:46 GEOTHERMAL OPERATIONS ENGINEER by Wolfgang Johnson M.D. [id number]
--- NOTE | 2021-01-25 14:00 | PC.CHAP ---
Pastoral Care Encounter/Spiritual Assessment Type of Contact [] Declined prosthetics assistant visit [] Patient/Family/Request visit [] Outpatient visit [] Follow-up visit [] Physician referral [] Code/Alert [] Routine visit [] Staff referral [] Actively dying [] Patient sleeping [] Family support [] [] Out of room [] Palliative care [] [] Receiving care in room [] Pre-surgical visit [] Trauma [] Long length of stay [] ICU visit [xx] Other: Isolated Relational/Emotional Strength [] Patient feels connected with others/family/visitors/staff [] Distress [] Loneliness/isolation [] Abandonment Spirituality of Patient [] Person of Dariela [] Attends Tenriism of their Dariela [] Believes in Prayer [] Reads Bible or Gnosticist materials [] There are Spiritual issues to be addressed Excellence Leader Interventions [] Prayer [] Active listening [] Non-anxious presence [] Spiritual/emotional support [] Crisis/trauma care [] Spiritual counseling [] Bereavement support [] Provided bereavement packet [] Provided Bible/devotional materials [] Provided toy/stuffed animal, coloring book to patient or family member [] Provided Communion [] Anointing/Echo [] Salvation [] Completed spiritual assessment [] Other: Impact on Illness or Injury [] Angry [] Fearful [] Anxious [] Often cries [] Exhaustion [] Unable to work [] Unable to attend quaker [] Unable to walk/stand [] Unable to read [] Unable to drive [] Unable to eat/drink [] Unable to sleep [] Unable to be with family [] Patient intubated [] Other: Summary Time spent with patient
[2021-01-25 14:09] LABS: Basophils % 0.2 %; Eosinophils % 0.3 %; Hematocrit 32.3 % (42.0-52.0); Hemoglobin 8.2 g/dL (11.7-16.6); Lymphocytes # 0.3 10^3/uL (0.8-4.8); Lymphocytes % 2.7 %; Mean Corpuscular HGB Conc 25.4 g/dL (30.0-36.0); Mean Corpuscular Hemoglobin 20.8 pg (28.0-34.0); Mean Platelet Volume 10.5 fL (7.4-10.4); Monocytes # 0.7 10^3/uL (0.2-0.9); Neutrophils # 9.29 10^3/uL (1.8-7.7); Neutrophils % 89.3 %; Nucleated Red Blood Cells % 0 %; Platelet Count 201 10^3/cmm (130-400); Red Blood Count 3.94 10^6/uL (4.1-5.3); Red Cell Distribution Width 18.1 % (12.1-15.1); White Blood Count 10.4 10^3/uL (4.0-10.0)
[2021-01-25] MEDS: flumazenil 0.1 mg/mL SDV 5mL 0.2 MG IV (14:22)
[2021-01-25 14:27] LABS: Alanine Aminotransferase 14 U/L (0-41); Albumin Level 3.4 g/dL (3.5-5.2); Alkaline Phosphatase 58 IU/L (40-130); Anion Gap 15.4 (5-19); Aspartate Amino Transferase 10 U/L (0-40); Blood Urea Nitrogen 26 mg/dL (8-23); Calcium 7.7 mg/dL (8.5-10.5); Carbon Dioxide 31 mmol/L (22-29); Chloride 102 mmol/L (98-107); Globulin 2.8 g/dL (1.3-4.6); Glucose 189 mg/dL (65-115); Osmolality Calculated 310 mOsm/kg (285-295); Potassium 3.4 mmol/L (3.5-5.1); Sodium 145 mmol/L (136-145); Total Bilirubin 0.2 mg/dL (0.15-1.2); Total Protein 6.2 g/dL (6.6-8.7)
[2021-01-25 14:28] LABS: Lactic Sepsis W/Reflex 0.7 mmol/L (0.5-2.2)
[2021-01-25] MEDS: naloxone 0.4 mg/ml SDV 2 MG IVP (14:44)
--- NOTE | 2021-01-25 14:45 | PC.NURSE ---
unable to scan narcan verified with and Dr. Dalton.
[2021-01-25 14:48] LABS: ABG PH Result 7.21 (7.35-7.45); Alveolar-Arterial Oxygen Gradi 27.4 mmHg (5-10); Arterial Blood Gas Hematocrit 23.7 % (42-52); Base Excess ABG 7.5 mmol/L (-2.0-2.0); Blood Gas Allen Test Pos; Blood Gas Operator Identificat MONRO; Blood Gas Sample Site Radial, left; Blood Gas Sample Type Arterial; Carboxyhemoglobin 1.6 %THgb (0.4-20.1); HCO3 ABG 36.8 mmol/L (22-26); HGB O2 Sat 86.4 % (95-100); Ionized Calcium Level - ABG 1.2 mmol/L (1.1-1.4); Methemoglobin 1.2 % (0.4-1.5); Oxygen Device BIPAP; Oxygen Saturation ABG 88.9; PO2 ABG 67.8 mmHg (80.0-100.0); Potassium Level - ABG 3.4 mmol/L (3.5-5.0); Total Hemoglobin 7.7 g/dL (14-18)
[2021-01-25 14:49] LABS: ABG PCO2 92.6 mmHg (35-45)
--- NOTE | 2021-01-25 15:57 | PC.SOCIAL ---
IMM Update pg 2 of IMM updated and reviewed w/ patients brother who is @ bedside. Copy provided.
[2021-01-25 16:21] LABS: ABG PH Result 7.24 (7.35-7.45); Arterial Blood Gas Hematocrit 25.2 % (42-52); Base Excess ABG 8.1 mmol/L (-2.0-2.0); Blood Gas Allen Test Pos; Blood Gas Sample Type Arterial; Carboxyhemoglobin 1.4 %THgb (0.4-20.1); HGB O2 Sat 93.6 % (95-100); Ionized Calcium Level - ABG 1.1 mmol/L (1.1-1.4); Methemoglobin 1.1 % (0.4-1.5); PO2 ABG 92.2 mmHg (80.0-100.0); Potassium Level - ABG 3.4 mmol/L (3.5-5.0); Total Hemoglobin 8.2 g/dL (14-18)
[2021-01-25 16:25] LABS: ABG PCO2 85.6 mmHg (35-45); Blood Gas Operator Identificat GD; Blood Gas Sample Site Radial, left; Oxygen Device BIPAP
[2021-01-25 17:15] LABS: Glucose Point of Care 224 mg/dL (70-110)
--- NOTE | 2021-01-25 18:40 | PC.NURSE ---
1312 Patient bipap alarm sounding, this nurse called RT to room, oxygen saturation 86% 1330 patient is lethargic not responsive to sternal rub, ABG obtained by RT, slight toe movement, RT increased settings on BIPAP, Dr. Dalton notified and on her way to the bedside. [address] Dr[address] Massey at bedside, FS obtained, lab draw obtained [address] Massey notified family of patient condition. continue current plan of care, patient not to be intubated or moved to ICU, remains AND code status.
[2021-01-25] MEDS: lactated ringers 500 ML 999 ML IV (19:41)
[2021-01-25 20:56] LABS: Glucose Point of Care 163 mg/dL (70-110)
[2021-01-25 23:12] LABS: ABG PH Result 7.28 (7.35-7.45); Arterial Blood Gas Hematocrit 25.6 % (42-52); Base Excess ABG 11.2 mmol/L (-2.0-2.0); Blood Gas Sample Type Arterial; Carboxyhemoglobin 0.7 %THgb (0.4-20.1); HCO3 ABG 39.9 mmol/L (22-26); HGB O2 Sat 91.1 % (95-100); Ionized Calcium Level - ABG 1.1 mmol/L (1.1-1.4); Methemoglobin 1.3 % (0.4-1.5); Potassium Level - ABG 3.5 mmol/L (3.5-5.0); Total Hemoglobin 8.3 g/dL (14-18)
[2021-01-25 23:15] LABS: Blood Gas Sample Site Radial, left; Oxygen Device BIPAP
[2021-01-25 23:19] LABS: Alveolar-Arterial Oxygen Gradi 26.9 mmHg (5-10)
[2021-01-25 23:22] LABS: ABG PCO2 85.5 mmHg (35-45)
--- NOTE | 2021-01-25 23:41 | PM.EVENT ---
Event Note Event Note: 01/25/21 23:01 ABG pH 7.28 L ABG pCO2 85.5 H* ABG pO2 78.0 L ABG HCO3 39.9 H ABG O2 Saturation 93.0 ABG Base Excess 11.2 H 01/25/21 01/25/21 01/25/21 13:23 14:47 16:02 ABG pH 7.11 L* 7.21 L 7.24 L ABG pCO2 119.0 H* 92.6 H* 85.6 H* ABG pO2 103.0 H 67.8 L 92.2 ABG HCO3 38.3 H 36.8 H 37.0 H ABG O2 Saturation 95.4 88.9 96.0 ABG Base Excess 7.1 H 7.5 H 8.1 H Called with ABG results. pH up a bit, pCO2 about the same. On 55% FIO2 and 55L flow. Vitals are otherwise stable. Reviewed events and notes from today. Will continue current care, including with bipap for now, and follow up ABG in am as per attending. Patient is to be allowed natural . If not significantly improved by morning anticipate discussion regarding potential shift towards comfort care given patient/family wishes.
[2021-01-26] VITALS (14 sets, daily range): BP systolic 100–142; BP diastolic 57–67; PULSE 65–91; RESP 18–27; TEMP 36.3–37.1; O2SAT 92–100
[2021-01-26] MEDS: piperacillin-tazobactam 3.375 GM in sodium chloride 0.9% (plus) 50 ML IV ×3 (02:01→17:10)
[2021-01-26] MEDS: ipratropium-albuterol 3 mL Neb INHALATION ×4 (02:46→21:33)
[2021-01-26 05:06] LABS: ABG PH Result 7.31 (7.35-7.45); Alveolar-Arterial Oxygen Gradi 24.4 mmHg (5-10); Base Excess ABG 11.4 mmol/L (-2.0-2.0); Blood Gas Sample Site Radial, left; Blood Gas Sample Type Arterial; Carboxyhemoglobin 1.2 %THgb (0.4-20.1); HCO3 ABG 39.3 mmol/L (22-26); HGB O2 Sat 95.7 % (95-100); Ionized Calcium Level - ABG 1.1 mmol/L (1.1-1.4); Methemoglobin 1.3 % (0.4-1.5); Oxygen Device BIPAP; Oxygen Saturation ABG 98.1; Potassium Level - ABG 3.5 mmol/L (3.5-5.0); Total Hemoglobin 7.5 g/dL (14-18)
[2021-01-26 05:20] LABS: ABG PCO2 78.3 mmHg (35-45)
[2021-01-26 06:20] LABS: Glucose Point of Care 111 mg/dL (70-110)
--- NOTE | 2021-01-26 06:49 | PC.NURSE ---
Patient able to follow commands. Wore Bipap all shift. Pt has requested a drink of water several times during shift. Easy to remind he is NPO. Pt resting comfortable in bed with eyes closed and Bipap in place at this time.
[2021-01-26] MEDS: docusate sodium 100 mg Capsule PO (08:45)
[2021-01-26] MEDS: ferrous sulfate EC 325 mg Tablet PO (08:45)
[2021-01-26] MEDS: magnesium oxide 400 mg tablet PO (08:45)
[2021-01-26] MEDS: sucralfate 1 gm Tablet PO ×2 (08:45→17:09)
[2021-01-26] MEDS: atorvastatin 40 mg Tablet 20 MG PO (08:45)
[2021-01-26] MEDS: pantoprazole DR 40 mg Tablet PO (08:45)
[2021-01-26] MEDS: citalopram 20 mg Tablet 40 MG PO (08:45)
[2021-01-26] MEDS: lisinopril 2.5 mg Tablet PO (08:46)
[2021-01-26] MEDS: cyanocobalamin 1,000 mcg/mL SDV 1000 MCG SUBCUT (08:46)
[2021-01-26] MEDS: enoxaparin 40 mg/0.4 mL Syringe SUBCUT (08:47)
[2021-01-26] MEDS: terazosin 5 mg Capsule PO (08:50)
--- NOTE | 2021-01-26 09:43 | PC.NURSE ---
Brother updated of patients condition at this time via telephone.
--- NOTE | 2021-01-26 12:24 | PC.CHAP ---
Pastoral Care Encounter/Spiritual Assessment Type of Contact [] Declined porter luggage visit [] Patient/Family/Request visit [] Outpatient visit [] Follow-up visit [] Physician referral [] Code/Alert [XX] Routine visit [] Staff referral [] Actively dying [] Patient sleeping [] Family support [] [] Out of room [] Palliative care [] [] Receiving care in room [] Pre-surgical visit [] Trauma [] Long length of stay [] ICU visit [] Other: Relational/Emotional Strength [] Patient feels connected with others/family/visitors/staff [] Distress [] Loneliness/isolation [] Abandonment Spirituality of Patient [] Person of Dariela [] Attends Confucianist of their Dariela [] Believes in Prayer [] Reads Bible or Mu-Ism materials [] There are Spiritual issues to be addressed Tongue And Groove Machine Setter Interventions [] Prayer [] Active listening [] Non-anxious presence [] Spiritual/emotional support [] Crisis/trauma care [] Spiritual counseling [] Bereavement support [] Provided bereavement packet [] Provided Bible/devotional materials [] Provided toy/stuffed animal, coloring book to patient or family member [] Provided Communion [] Anointing/[place] [] Salvation [] Completed spiritual assessment [XX] Other: Advocacy Impact on Illness or Injury [] Angry [] Fearful [] Anxious [] Often cries [] Exhaustion [] Unable to work [] Unable to attend scientologist [] Unable to walk/stand [] Unable to read [] Unable to drive [] Unable to eat/drink [] Unable to sleep [] Unable to be with family [] Patient intubated [] Other: Summary: Pt is extremely difficult to understand. Tongue And Groove Machine Setter helped patient with sock and sought nursing attention on behalf of pt. Pt was motioning to his face/mouth but could not be completely understood. Time spent with patient: <5 mins
[2021-01-26 12:29] LABS: Glucose Point of Care 131 mg/dL (70-110)
[2021-01-26 14:49] LABS: Basophils % 0.2 %; Eosinophils # 0.1 10^3/uL (0.0-0.8); Eosinophils % 0.6 %; Hematocrit 30.1 % (42.0-52.0); Hemoglobin 7.8 g/dL (11.7-16.6); Lymphocytes # 0.4 10^3/uL (0.8-4.8); Lymphocytes % 4.4 %; Mean Corpuscular HGB Conc 25.9 g/dL (30.0-36.0); Mean Corpuscular Hemoglobin 20.9 pg (28.0-34.0); Mean Corpuscular Volume 80.7 fl (80-94); Mean Platelet Volume 10.5 fL (7.4-10.4); Monocytes # 0.6 10^3/uL (0.2-0.9); Monocytes % 6.5 %; Neutrophils # 7.53 10^3/uL (1.8-7.7); Neutrophils % 88.1 %; Nucleated Red Blood Cells % 0 %; Platelet Count 170 10^3/cmm (130-400); Red Blood Count 3.73 10^6/uL (4.1-5.3); Red Cell Distribution Width 18.7 % (12.1-15.1); White Blood Count 8.6 10^3/uL (4.0-10.0)
[2021-01-26 17:04] LABS: Glucose Point of Care 166 mg/dL (70-110)
--- NOTE | 2021-01-26 17:08 | P.PN_ITS ---
Subjective Subjective: Interval history: WBC count has resolved down to 8.6. Patient has been afebrile overnight. His mental status is back to baseline. Brother and his at bedside updated in detail today. Patient is asking for food and more ice chips. He is perky and talking. Requesting to wear shorts. Villatoro catheter draining good amount of clear yellow urine. All of the questions of the brother and brother's were answered in detail to their satisfaction. Vitals/I&O/Wt Last Vital Signs Temp 98.4 F 01/26/21 15:25 Pulse 79 01/26/21 15:25 Resp 18 01/26/21 15:25 BP 142/67 01/26/21 15:25 Pulse Ox 93 01/26/21 15:25 01/26/21 01/26/21 01/26/21 06:59 14:59 22:59 Intake Total 100 / 1230 50 / 50 Output Total 150 / 150 Balance 100 / 1230 -100 / -100 Physical Exam Narrative: EXAM NARRATIVE: EXAM NARRATIVE: General: Alert and oriented to self this morning appearing awake perky. Chest: Clear to auscultation anterior lung hawthorne. Mild rhonchi at right lung base. CVS: S1-S2 regular, no murmurs, muffled heart sounds due to large body habitus Abdomen: Soft, nontender, bowel sounds present, obese rounded abdomen Neuro: Able to move upper extremities and wiggle toes. No focal neurologic deficits. Patient's mental status is back to his baseline. Has chronic Villatoro catheter and suprapubic region. New Villatoro was placed 01/22 since patient pulled it out. Data : 01/26/21 14:42 01/25/21 14:00 A&P Assessment and plan (1) Neurogenic bladder: Status: Acute (2) Pneumonia: Status: Acute (3) Anemia: Status: Acute (4) Stasis dermatitis: Status: Acute (5) Mild mental handicap: Status: Acute Additional A&P Information #Right lower lobe aspiration pneumonia #Acute hypercapnic respiratory failure on BiPAP. Period of unresponsiveness. Possible reaspiration.?Resolved #Diabetes mellitus #Intellectually disabled #Chronic indwelling Villatoro due to neurogenic bladder. #Paraplegia #Bilateral pleural effusions, cardiomegaly on x-ray. Effusions have improved. #Iron deficiency anemia, no active bleeding or melena or hemoptysis #Mild right sided heart failure?continue oral Lasix. Patient did have a choking episode on 01/08 and there was a change in diet done to mechanical soft consistency thereafter.. Continue IV Zosyn for now. Off note patient was on outpatient levofloxacin prior to arrival. ?Blood cultures negative to date, sputum Gram stain culture pending, MRSA PCR negative, urine bacterial Legionella antigens negative, Covid PCR negative ?Speech evaluation requested. No strokelike features nonfocal neuro exam. Dysphagia level 2 diet ordered initially was switched to pur?ed diet. After patient's period of unresponsiveness yesterday with hypercapnic respiratory failure at this point it has resolved. Patient is back to baseline mental status. Blood gases also improved. ?Recommend to continue wearing BiPAP at night. -WBC count resolved. Continue Zosyn for now. ?Continue Villatroo catheter, Urinalysis did show Proteus mirabilis sensitive to Zosyn. ?Cardiomegaly on x-ray. Moderate bilateral pleural effusion seen on CTA chest performed 01/23. Pleural effusions are minimal at this point. Have discussed with Dr. Massey and we do not believe the effusion is enough for us to do a thoracentesis on the patient at this time. -Patient appears slightly dry. He was given a 500 cc normal saline bolus yesterday evening. I have stopped the Lasix at this point. ?Echocardiogram complete BNP 1300 admission. Unsure if patient has diagnosis of heart failure from prior. Echo report does show mild right-sided heart failure. LV function appears to be normal at 55% but it was a poor study. We will switch to Lasix 40 p.o. daily at discharge. ?Hemoglobin 7.8 today. 7.2 on admission. Iron studies support diagnosis of iron deficiency anemia. Completed Venofer 200 IV x3 days. - Vitamin B12 low at 160. Continue subcu B12 x7 days total. DNR/DNI. Pur?ed diet. Can restart diet today with strict aspiration precautions and assistance with feeding. Glucerna 1 times a day added additionally. dct ppx lovenox Patient's brother and brother's are both DPOA's and have been updated extensively in detail by myself at bedside today. Plan to send patient back to [facility] by tomorrow. Due to his episode yesterday I would like to monitor him in the hospital today. Attestations Medical Necessity Statement*: Greater than 24-hour stay for monitoring in the hospital today. Can potentially discharge back to [facility] in a.m. Coding Level of Care Code Acute Senior Software Qa Analyst for [facility] Fwd Diagnoses Neurogenic bladder N31.9 Pneumonia J18.9 Anemia D64.9 Stasis dermatitis I87.2 Mild mental handicap F70
[2021-01-26] MEDS: insulin lispro 100 unit/1 mL SUBCUT ×2 (17:09→22:42)
[2021-01-27] VITALS (16 sets, daily range): BP systolic 90–123; BP diastolic 54–76; PULSE 72–98; RESP 16–22; TEMP 36.6–36.9; O2SAT 82–98
[2021-01-27] MEDS: ipratropium-albuterol 3 mL Neb INHALATION ×4 (02:33→19:38)
[2021-01-27] MEDS: piperacillin-tazobactam 3.375 GM in sodium chloride 0.9% (plus) 50 ML IV ×3 (03:24→17:13)
[2021-01-27 04:51] LABS: ABG PH Result 7.38 (7.35-7.45); Alveolar-Arterial Oxygen Gradi 18.8 mmHg (5-10); Base Excess ABG 10.8 mmol/L (-2.0-2.0); Blood Gas Sample Site Radial, left; Blood Gas Sample Type Arterial; Carboxyhemoglobin 1.3 %THgb (0.4-20.1); HCO3 ABG 37.4 mmol/L (22-26); HGB O2 Sat 95.3 % (95-100); Ionized Calcium Level - ABG 1.1 mmol/L (1.1-1.4); Methemoglobin 1.4 % (0.4-1.5); Oxygen Device BIPAP; Potassium Level - ABG 3.9 mmol/L (3.5-5.0); Total Hemoglobin 7.8 g/dL (14-18)
[2021-01-27 04:55] LABS: ABG PCO2 63.8 mmHg (35-45)
[2021-01-27 06:08] LABS: Basophils % 0.3 %; Eosinophils # 0.1 10^3/uL (0.0-0.8); Eosinophils % 1.1 %; Hematocrit 29.1 % (42.0-52.0); Hemoglobin 7.5 g/dL (11.7-16.6); Lymphocytes # 0.4 10^3/uL (0.8-4.8); Lymphocytes % 5.8 %; Mean Corpuscular HGB Conc 25.8 g/dL (30.0-36.0); Mean Corpuscular Hemoglobin 20.9 pg (28.0-34.0); Mean Corpuscular Volume 81.1 fl (80-94); Mean Platelet Volume 10.9 fL (7.4-10.4); Monocytes # 0.4 10^3/uL (0.2-0.9); Monocytes % 5.8 %; Neutrophils # 6.31 10^3/uL (1.8-7.7); Neutrophils % 86.7 %; Nucleated Red Blood Cells % 0 %; Platelet Count 186 10^3/cmm (130-400); Red Blood Count 3.59 10^6/uL (4.1-5.3); White Blood Count 7.3 10^3/uL (4.0-10.0)
[2021-01-27 06:28] LABS: Anion Gap 12.5 (5-19); Blood Urea Nitrogen 43 mg/dL (8-23); Calcium 7.8 mg/dL (8.5-10.5); Carbon Dioxide 36 mmol/L (22-29); Chloride 102 mmol/L (98-107); Glucose 108 mg/dL (65-115); Magnesium 2.6 mg/dL (1.7-2.3); Osmolality Calculated 315 mOsm/kg (285-295); Potassium 3.5 mmol/L (3.5-5.1); Sodium 147 mmol/L (136-145)
[2021-01-27] MEDS: lisinopril 2.5 mg Tablet PO (08:39)
[2021-01-27] MEDS: citalopram 20 mg Tablet 40 MG PO (08:39)
[2021-01-27] MEDS: enoxaparin 40 mg/0.4 mL Syringe SUBCUT (08:39)
[2021-01-27] MEDS: magnesium oxide 400 mg tablet PO (08:39)
[2021-01-27] MEDS: docusate sodium 100 mg Capsule PO (08:39)
[2021-01-27] MEDS: ferrous sulfate EC 325 mg Tablet PO (08:39)
[2021-01-27] MEDS: sucralfate 1 gm Tablet PO ×2 (08:40→17:13)
[2021-01-27] MEDS: cyanocobalamin 1,000 mcg/mL SDV 1000 MCG SUBCUT (08:40)
[2021-01-27] MEDS: atorvastatin 40 mg Tablet 20 MG PO (08:40)
[2021-01-27] MEDS: pantoprazole DR 40 mg Tablet PO (08:40)
[2021-01-27] MEDS: terazosin 5 mg Capsule PO (08:40)
--- NOTE | 2021-01-27 10:42 | PC.SOCIAL ---
IMM UPDATED IMM dated and initialed and copy given to patient
[2021-01-27 11:29] LABS: Glucose Point of Care 199 mg/dL (70-110)
[2021-01-27] MEDS: insulin lispro 100 unit/1 mL SUBCUT ×2 (11:36→22:55)
[2021-01-27 13:18] LABS: SARS Covid-2 Antigen Negative (Negative)
[2021-01-27] MEDS: sodium chloride 0.9% 1,000 ML 75 ML IV (13:43)
--- NOTE | 2021-01-27 15:26 | P.PN_ITS ---
Subjective Subjective: Interval history: Seen this morning. His mental status is back to baseline. He is doing well. Creatinine went up to 2.5. We will give IV fluids. He ate his breakfast and is asking for coffee. Home oxygen evaluation was ordered Vitals/I&O/Wt Last Vital Signs Temp 98.2 F 01/27/21 11:32 Pulse 73 01/27/21 15:06 Resp 18 01/27/21 14:59 BP 109/64 01/27/21 11:32 Pulse Ox 91 01/27/21 14:59 01/27/21 01/27/21 01/27/21 06:59 14:59 22:59 Intake Total 220 / 220 Balance 220 / 220 Physical Exam Narrative: EXAM NARRATIVE: EXAM NARRATIVE: General: Alert and oriented to self this morning appearing awake perky. Chest: Clear to auscultation anterior lung hawthorne. Mild rhonchi at right lung base. CVS: S1-S2 regular, no murmurs, muffled heart sounds due to large body habitus Abdomen: Soft, nontender, bowel sounds present, obese rounded abdomen Neuro: Able to move upper extremities and wiggle toes. No focal neurologic deficits. Patient's mental status is back to his baseline. Has chronic Villatoro catheter and suprapubic region. New Villatoro was placed 01/22 since patient pulled it out. No change in physical exam compared to yesterday Data : 01/27/21 05:35 01/27/21 05:35 A&P Assessment and plan (1) Neurogenic bladder: Status: Acute (2) Pneumonia: Status: Acute (3) Anemia: Status: Acute (4) Stasis dermatitis: Status: Acute (5) Mild mental handicap: Status: Acute Additional A&P Information #Right lower lobe aspiration pneumonia #Acute hypercapnic respiratory failure on BiPAP. Period of unresponsiveness. Possible reaspiration.?Resolved #Diabetes mellitus #Intellectually disabled #Chronic indwelling Villatoro due to neurogenic bladder. #Paraplegia #Bilateral pleural effusions, cardiomegaly on x-ray. Effusions have improved. #Iron deficiency anemia, no active bleeding or melena or hemoptysis #Mild right sided heart failure?continue oral Lasix. Patient did have a choking episode on 01/08 and there was a change in diet done to mechanical soft consistency thereafter.. Continue IV Zosyn for now. Off note patient was on outpatient levofloxacin prior to arrival. ?Blood cultures negative to date, sputum Gram stain culture pending, MRSA PCR negative, urine bacterial Legionella antigens negative, Covid PCR negative ?Speech evaluation requested. No strokelike features nonfocal neuro exam. Dysphagia level 2 diet ordered initially was switched to pur?ed diet. After patient's period of unresponsiveness yesterday with hypercapnic respiratory failure at this point it has resolved. Patient is back to baseline mental status. Blood gases also improved. ?Recommend to continue wearing BiPAP at night. -WBC count resolved. Continue Zosyn for now. ?Continue Villatoro catheter, Urinalysis did show Proteus mirabilis sensitive to Zosyn. ?Cardiomegaly on x-ray. Moderate bilateral pleural effusion seen on CTA chest performed 01/23. Pleural effusions are minimal at this point. Have discussed with Dr. Massey and we do not believe the effusion is enough for us to do a thorac entesis on the patient at this time. -Patient appears slightly dry. He was given a 500 cc normal saline bolus yesterday evening. I have stopped the Lasix at this point. ?Echocardiogram complete BNP 1300 admission. Unsure if patient has diagnosis of heart failure from prior. Echo report does show mild right-sided heart failure. LV function appears to be normal at 55% but it was a poor study. We will switch to Lasix 40 p.o. daily at discharge. ?Hemoglobin 7.8 today. 7.2 on admission. Iron studies support diagnosis of iron deficiency anemia. Completed Venofer 200 IV x3 days. - Vitamin B12 low at 160. Continue subcu B12 x7 days total. #LAURA - Cr. 2.5. Baseline 1.2. Will order IV fluids. DNR/DNI. Pur?ed diet. Can restart diet today with strict aspiration precautions and assistance with feeding. Glucerna 1 times a day added additionally. dct ppx lovenox Patient's brother and brother's are both DPOA's and have been updated extensively in detail by myself at bedside 01/27 Plan to send patient back to [facility] 01/28 if creatinine is better. Attestations Medical Necessity Statement*: > 24 hours Coding Level of Care Code Acute Supervisor Electron Tube Processing for g Fwd Diagnoses Neurogenic bladder N31.9 Pneumonia J18.9 Anemia D64.9 Stasis dermatitis I87.2 Mild mental handicap F70
[2021-01-27 17:00] LABS: Glucose Point of Care 141 mg/dL (70-110)
--- NOTE | 2021-01-27 19:03 | CTR_ITS ---
PROCEDURE INFORMATION: Exam: CT Head Without Contrast Exam date and time: 01/27/2021 7:03 PM Age: 80 years old Clinical indication: Altered mental status/memory loss; Additional info: Rule out stroke, floor unable to bring patient to CT due to staffing shortage 01/26/21 TECHNIQUE: Imaging protocol: Computed tomography of the head without contrast. Total images: 236 Radiation optimization: All CT scans at this facility use at least one of these dose optimization techniques: automated exposure control; mA and/or kV adjustment per patient size (includes targeted exams where dose is matched to clinical indication); or iterative reconstruction. COMPARISON: CT head wo con* [id number] 01/20/2021 1:48 AM RADIATION DOSE METRICS: Total DLP (mGy-cm): 1476.03 FINDINGS: Brain: Global brain atrophy and chronic white matter ischemic changes are present. There is moderate diffuse cerebral atrophy present. Cerebral ventricles: Ventricles are appropriate in size for degree of atrophy. Disproportionate enlargement of the lateral and 3rd ventricles. This finding is stable when compared to the prior exam. Paranasal sinuses: Visualized sinuses are unremarkable. No fluid levels. Mastoid air cells: Visualized mastoid air cells are well aerated. Orbital cavity: Dysconjugate gaze. Bones/joints: Prominent atlantodental degenerative changes. Soft tissues: Unremarkable. Other findings: Examination is motion limited. CT/CT head wo con* [id number] IMPRESSION: 1. No acute intracranial pathology detected. 2. Disproportionate enlargement of the lateral and 3rd ventricles. This finding is stable when compared to the prior exam.
[2021-01-27 19:15] LABS: Anion Gap 15.7 (5-19); Blood Urea Nitrogen 48 mg/dL (8-23); Calcium 7.6 mg/dL (8.5-10.5); Carbon Dioxide 30 mmol/L (22-29); Chloride 101 mmol/L (98-107); Creatinine Clr Calc Pharmacy 34.8015; Glucose 191 mg/dL (65-115); Osmolality Calculated 314 mOsm/kg (285-295); Potassium 3.7 mmol/L (3.5-5.1); Sodium 143 mmol/L (136-145)
--- NOTE | 2021-01-27 19:56 | NUR.SHIFT ---
Shift report received from Deisy HILTON. Patient awake in bed. 3L NC. Telemetry monitoring present. Suprapubic catheter patent and draining dark yellow urine. No IV at shift change per report MD Dr Dalton aware. New order for IV access at 1930. No s/s of pain or discomfort. No needs noted at this time.
[2021-01-27 21:12] LABS: Glucose Point of Care 178 mg/dL (70-110)
[2021-01-27] MEDS: sodium chloride 0.9% 1,000 ML 100 ML IV (22:30)
[2021-01-28] VITALS (12 sets, daily range): BP systolic 109–125; BP diastolic 43–71; PULSE 63–121; RESP 18–28; TEMP 36.5–37.2; O2SAT 90–98
--- NOTE | 2021-01-28 00:28 | PC.NURSE ---
Patient in bed/sleeping. CPap in place. IV infusing NS at 100mL/hr. No s/s of pain or discomfort.
--- NOTE | 2021-01-28 01:50 | PC.NURSE ---
no s/s of pain or discomfort
--- NOTE | 2021-01-28 01:52 | PC.NURSE ---
Update provided to Gabrielle CEDILLO at [facility]. phone [phone]
[2021-01-28] MEDS: ipratropium-albuterol 3 mL Neb INHALATION ×4 (02:21→20:17)
--- NOTE | 2021-01-28 04:03 | PC.NURSE ---
Patient in bed asleep/ CPap in place. Bed alarm active. No s/s of pain or discomfort.
[2021-01-28 06:39] LABS: Glucose Point of Care 129 mg/dL (70-110)
[2021-01-28] MEDS: sodium chloride 0.9% 1,000 ML 75 ML IV (07:18)
[2021-01-28] MEDS: sodium chloride 0.9% 1,000 ML 100 ML IV (07:50)
[2021-01-28] MEDS: atorvastatin 40 mg Tablet 20 MG PO (07:51)
[2021-01-28] MEDS: enoxaparin 40 mg/0.4 mL Syringe SUBCUT (07:51)
[2021-01-28] MEDS: magnesium oxide 400 mg tablet PO (07:51)
[2021-01-28] MEDS: lisinopril 2.5 mg Tablet PO (07:51)
[2021-01-28] MEDS: docusate sodium 100 mg Capsule PO (07:51)
[2021-01-28] MEDS: cyanocobalamin 1,000 mcg/mL SDV 1000 MCG SUBCUT (07:51)
[2021-01-28] MEDS: sucralfate 1 gm Tablet PO ×2 (07:52→16:21)
[2021-01-28] MEDS: ferrous sulfate EC 325 mg Tablet PO (07:52)
[2021-01-28] MEDS: terazosin 5 mg Capsule PO (07:52)
[2021-01-28] MEDS: citalopram 20 mg Tablet 40 MG PO (07:52)
[2021-01-28] MEDS: pantoprazole DR 40 mg Tablet PO (07:52)
[2021-01-28] MEDS: piperacillin-tazobactam 3.375 GM in sodium chloride 0.9% (plus) 50 ML IV (07:58)
--- NOTE | 2021-01-28 09:55 | PC.CHAP ---
Pastoral Care Encounter/Spiritual Assessment Type of Contact [] Declined beet topper visit [] Patient/Family/Request visit [] Outpatient visit [] Follow-up visit [] Physician referral [] Code/Alert [x] Routine visit [] Staff referral [] Actively dying [] Patient sleeping [] Family support [] [] Out of room [] Palliative care [] [] Receiving care in room [] Pre-surgical visit [] Trauma [] Long length of stay [] ICU visit [] Other: Relational/Emotional Strength [x] Patient feels connected with others/family/visitors/staff [] Distress [] Loneliness/isolation [] Abandonment Spirituality of Patient [x] Person of Dariela [] Attends Jewish of their Dariela [x] Believes in Prayer [] Reads Bible or Tenriism materials [] There are Spiritual issues to be addressed 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 Interventions [x] Prayer [x] Active listening [] Non-anxious presence [] Spiritual/emotional support [] Crisis/trauma care [] Spiritual counseling [] Bereavement support [] Provided bereavement packet [] Provided Bible/devotional materials [] Provided toy/stuffed animal, coloring book to patient or family member [] Provided Communion [] Anointing/[place] [] Salvation x[x] Completed spiritual assessment [] Other: Impact on Illness or Injury [] Angry [] Fearful [] Anxious [] Often cries [] Exhaustion [] Unable to work [] Unable to attend quaker [] Unable to walk/stand [] Unable to read [] Unable to drive [] Unable to eat/drink [] Unable to sleep [] Unable to be with family [] Patient intubated [] Other: Summary Time spent with patient 5 jackie
[2021-01-28 09:58] LABS: Anion Gap 16.1 (5-19); Blood Urea Nitrogen 43 mg/dL (8-23); Calcium 7.5 mg/dL (8.5-10.5); Carbon Dioxide 29 mmol/L (22-29); Chloride 106 mmol/L (98-107); Glucose 114 mg/dL (65-115); Osmolality Calculated 316 mOsm/kg (285-295); Potassium 4.1 mmol/L (3.5-5.1); Sodium 147 mmol/L (136-145)
--- NOTE | 2021-01-28 11:14 | PM.DCS ---
Discharge Providers Date of Admission: 01/20/21 10:55 Date of Discharge: January 28, 2021 Attending Provider at Admission: Elle Mcclure MD Attending Provider at Discharge: Elle Mcclure MD Primary Care Provider: Yonug Sotelo MD Diagnoses at Discharge Discharge Diagnosis (1) Neurogenic bladder: Status: Acute (2) Pneumonia: Status: Acute (3) Anemia: Status: Acute (4) Stasis dermatitis: Status: Acute (5) Mild mental handicap: Status: Acute Reason for Visit Reason for Visit: AMS Hospital Course Hospital Course HPI as per Dr. Maradiaga, Kelton Wiseman is a 80 year old male, group home resident at [facility] for developmental delay. At a baseline patient does communicate no with very simple words, able to make needs known such as hunger bowel movements is extra. Transfers with a walker at baseline does not ambulate very much. He is brought into the emergency room today due to complaints of difficulty breathing, hypoxia new oxygen requirement of 5 L/min on nasal cannula. This past week he was also being treated for a urinary tract infection with levofloxacin 750 mg p.o. daily. History is obtained by talking to nurse at [facility]. About 2 weeks ago patient had an episode of witnessed aspiration while he was eating a large piece of chicken. He was on a regular diet prior, after this event he was evaluated by swallow specialist and has been placed on a soft mechanical diet. Patient has a chronic indwelling Villatoro in place which is changed regularly. Chest x-ray today shows right lower lobe pneumonia with pleural effusion. ABG shows hypercapnic respiratory failure with pH 7.24, 80 point 4.8, he was thereafter placed on a BiPAP. He has been afebrile. No leukocytosis noted on labs from 01 18 and today. Noted to have anemia with hemoglobin 7.2, no recent noted melena or hemoptysis at the group home. Last known baseline hemoglobin is ~9 last checked on November 15, 2020 He was tested with rapid Covid antigen this past week and was reportedly negative. PCR has been checked today and pending Course Patient was admitted for right lower lobe aspiration pneumonia. He also had hypoxia hypercapnic respiratory failure on admission he was placed on BiPAP and now back to nasal cannula. He was also diuresed with IV Lasix for his bilateral pleural effusions. He is now down to 2 to 3 L of oxygen. BNP was 1300 on admission. Echo was done during hospital stay which showed normal EF 55% with no regional wall motion abnormality. There was abnormal septal motion seen. Mildly reduced right ventricular systolic function. Patient does have history of obstructive sleep apnea and uses BiPAP at night. Dr. Sotelo is his primary care doctor. Patient did have a one-time temperature spike up to 100.2 3 days ago but later on has remained afebrile for the last 3 days. Patient's hemoglobin was also in the 7 range on admission and it stayed stable in that range during hospital stay. He was worked up and iron deficiency anemia was diagnosed. He is on iron orally at home. He was given IV Venofer during hospital stay. Vitamin B12 is also low and he was started on subcu B12 injections. He will need to follow-up with primary care to keep an eye on his hemoglobin, B12. Was also given follow-up with cardiology for follow-up regarding mild right-sided heart failure. I have increased his Lasix from 20 daily to 40 daily at this point. On physical exam he seems euvolemic and well diuresed. Covid test negative during hospital stay. WBC count normal. He will be discharged home on Augmentin to cover for aspiration pneumonia and UTI. Urine did grow Proteus mirabilis sensitive to Augmentin which can be possible colonization due to his chronic suprapubic catheter. We did call the group home and patient's baseline mental status is how he was in the hospital during the stay. Patient is able to make his needs known and can talk and basic vocabulary. He does tend to repeat the sentences over and over again and ask for coffee. He also fiddles with his catheter and sometimes pulls it out. At baseline he can transfer from bed to chair but cannot really walk without assistance. Patient was also seen by speech pathology while here. He was on a regular diet prior to arrival but now is on a dysphagia 2 ground diet. Patient was able to finish his breakfast on his own this morning and is in good spirits today. Plan is to discharge him back to group home with close follow-up with primary care. Discharge Data Data Completed and Pending: Completed Studies During Hospitalization Category Date Time Status CT angio chest 71 275 Stat Cat Scan 01/23/21 17:[address] chest wo con 7 1250 Urgent Cat Scan 01/23/21 11:[address] head wo con* 7 0450 Stat Cat Scan 01/27/21 19:[address] head wo con* 7 0450 Urgent Cat Scan 01/20/21 01:10 Completed XR chest 1V roya ble [id number] Routine Exams 01/25/21 13:40 Completed XR chest 1V roya ble [id number] Urgent Exams 01/20/21 01:10 Completed XR chest 1V roya ble [id number] Urgent Exams 01/22/21 08:10 Completed XR chest 1V roya ble [id number] Urgent Exams 01/25/21 11:48 [place] [id number] Urgent Ultrasound 01/24/21 17:26 Completed CV. echo limited [id number] Routine Ultrasound 01/21/21 06:00 Completed Pending at discharge Category Date Time Status Sputum Culture an d Gram Stain Routi ne Lab 01/20/21 07:46 Uncollected Labs from last 24 hours 01/28/21 01/28/21 01/27/21 09:22 06:28 21:06 Sodium 147 H Potassium 4.1 Chloride 106 Carbon Dioxide 29 Anion Gap 16.1 BUN 43 H Creatinine 1.7 H GFR Calculation Not Reportable Glucose 114 POC Glucose 129 H 178 H Calculated Osmolal ity 316 H Calcium 7.5 L SARS-CoV-2 Ag (Rap id) 01/27/21 01/27/21 01/27/21 18:48 16:55 12:45 Sodium 143 Potassium 3.7 Chloride 101 Carbon Dioxide 30 H Anion Gap 15.7 BUN 48 H Creatinine 2.1 H GFR Calculation Not Reportable Glucose 191 H POC Glucose 141 H Calculated Osmolal ity 314 H Calcium 7.6 L SARS-CoV-2 Ag (Rap id) Negative 01/27/21 11:21 Sodium Potassium Chloride Carbon Dioxide Anion Gap BUN Creatinine GFR Calculation Glucose POC Glucose 199 H Calculated Osmolal ity Calcium SARS-CoV-2 Ag (Rap id) Vitals: Last Vital Signs Temp 98.6 F 01/28/21 08:00 Pulse 72 01/28/21 08:28 Resp 18 01/28/21 08:28 BP 118/56 01/28/21 08:00 Pulse Ox 93 01/28/21 08:28 Discharge Plan Discharge Patient Disposition: Xfer SNF Condition: Stable Prescriptions: New cyanocobalamin (vitamin B-12) 1,000 mcg/mL Solution 1,000 mcg SUBCUT DAILY 5 Days Qty: 5 RF: 0 Augmentin 875-125 mg tablet 1 tab PO Q12H 5 Days Qty: 10 RF: 0 Continued citalopram 40 mg tablet 40 mg PO DAILY Qty: 30 RF: 0 terazosin 5 mg capsule 5 mg PO DAILY RF: 0 acetaminophen [Tylenol Extra Strength] 500 mg tablet 500 mg PO Q6H PRN (Reason: Pain, Mild) RF: 0 sucralfate [Carafate] 1 gram tablet 1 gm PO BID RF: 0 pravastatin [Pravachol] 40 mg tablet 40 mg PO DAILY RF: 0 metformin 500 mg tablet 500 mg PO BID RF: 0 docusate sodium [Colace] 100 mg capsule 100 mg PO DAILY RF: 0 ferrous sulfate 325 mg (65 mg iron) tablet 325 mg PO DAILY RF: 0 aspirin [Adult Aspirin Regimen] 81 mg tablet,delayed release (DR/EC) 81 mg PO DAILY RF: 0 triamcinolone acetonide 0.1 % ointment 1 applic topical BID Qty: 453.6 RF: 3 albuterol sulfate 90 mcg/actuation Hfa Aerosol Inhaler 1 puff INHALATION QID PRN (Reason: Wheezing) RF: 0 ondansetron 4 mg Tablet,Disintegrating 4 mg PO Q6H PRN (Reason: Nausea) RF: 0 levocetirizine 5 mg Tablet 5 mg PO DAILY RF: 0 Changed Lasix 20 mg tablet 40 mg PO DAILY Qty: 0 RF: 0 Held magnesium oxide 400 mg (241.3 mg magnesium) tablet 400 mg PO DAILY RF: 0 Hold Instructions: see pcp lisinopril 2.5 mg tablet 2.5 mg PO DAILY RF: 0 Hold Instructions: Resume on 02/04/21. Discontinued levofloxacin 750 mg tablet 750 mg PO DAILY 7 Days Qty: 7 RF: 0 potassium chloride 10 mEq capsule, extended release 10 meq PO DAILY RF: 0 Zdtaexy-Gugclyt-Tzlaowxgwtxnct 90-60-800 mg Tablet Extended Release 12 Hr 1 tab PO QID RF: 0 Discharge Orders: Discharge Order (Routine); Ordered 01/28/21 Ordered By: Elle Mcclure Other Ambulatory Orders: Basic Metabolic Panel (Routine) Timeframe: 1 Week Facility: [facility] - Location: Lab - Main Lab Ordered By: Jeanne Krystle Complete Blood Count w/Auto (Routine) Timeframe: 1 Week Location: Determined by Patient Ordered By: Jeanne Dalton Referrals: Young Sotelo MD [Primary Care Provider] - 1 week (Ashleigh will follow up with pt at the group home) Discharge Diet: As Directed Discharge Activity: Wheelchair as instructed and As per PT/OT instructions Patient Instructions: Amoxicillin/Clavulanate Potassium (By mouth), Vitamin B-12 (By mouth) Activity Restrictions/Additional Instructions: Dysphagia level 2 diet - ground Specific instructions for the group home Patient will need assisted spoon feeding Would benefit from one-to-one supervision during assist with spoon feeding Aspiration precautions must be followed Patient will need BiPAP at night and on as needed basis intermittently in the daytime, he should take Lasix 40 mg daily starting 01/29, his creatinine LAURA improved with IV fluids in the hospital. Holding lisinopril for 1 week, repeat CBC and BMP Coding Level of Care Code Acute Chg FW DC note Diagnoses Neurogenic bladder N31.9 Pneumonia J18.9 Anemia D64.9 Stasis dermatitis I87.2 Mild mental handicap F70
--- NOTE | 2021-01-28 11:15 | XR_ITS ---
WS: [id number] XR chest 1V portable [id number] REASON FOR EXAM: fluid overload FINDINGS: Moderately tortuous thoracic aorta without aneurysmal dilatation. Cardiomegaly. Bilateral pleural effusions. Interstitial infiltrative changes centrally and in the lower lung hawthorne. XR/XR chest 1V portable [id number] IMPRESSION: Findings most compatible with pulmonary edema, pleural effusions, congestive he art failure. The amount of fluid in the right chest may be decreased compared t o the previous examination of 01/25/2021 however this could be a matter of posi tioning. The left chest appears unchanged.
[2021-01-28] MEDS: FUROsemide 10 mg/mL SDV 10mL 60 MG IVP (11:24)
[2021-01-28 11:40] LABS: Glucose Point of Care 265 mg/dL (70-110)
[2021-01-28] MEDS: insulin lispro 100 unit/1 mL SUBCUT ×2 (11:56→23:51)
--- NOTE | 2021-01-28 14:34 | PM.PN ---
Subjective Subjective: Interval history: Patient was fluid overloaded today required 6 L oxygen increased from 3 L Noticed food all over his hospital gown Was able to make eye contact and respond to my questions Oriented to himself Requested chest x-ray Given Lasix this morning We will plan to discharge him tomorrow holding his discharge today Vitals/I&O/Wt Last Vital Signs Temp 98.4 F 01/28/21 11:45 Pulse 98 01/28/21 11:45 Resp 20 H 01/28/21 11:45 BP 113/61 01/28/21 11:45 Pulse Ox 91 01/28/21 11:45 01/27/21 01/28/21 01/28/21 22:59 06:59 14:59 Intake Total 480 / 700 2032.333 / 2032. Output Total 500 / 500 Balance 480 / 700 -500 / 200 2032.333 / Physical Exam Narrative: EXAM NARRATIVE: Patient was eating breakfast when entered the room Food particles all over his hospital gown Able to make eye contact Nonfocal neuro exam Was on 3 L nasal cannula in the morning and later required 6 L Clinically looks fluid overloaded Bilateral breath sound with rhonchi and crackles Distended abdomen Lower extremity edema positive Data : 01/27/21 05:35 01/28/21 09:22 Micro: Microbiology 01/28/21 05:13 Occult Blood (FIT) - Final Stool Routine Collection A&P Assessment and plan (1) Neurogenic bladder: Status: Acute (2) Mild mental handicap: Status: Acute (3) Stasis dermatitis: Status: Acute (4) Pneumonia: Status: Acute (5) Aspiration pneumonia: Status: Acute (6) Type 2 diabetes mellitus without complications: Status: Acute (7) Anemia: Status: Acute Additional A&P Information Aspiration pneumonia We will give Augmentin for 3 days to finish 10 days of coverage Acute preserved ejection fraction heart failure exacerbation Requiring 6 L today, given Lasix IV push this morning Clinically looks fluid overloaded EF 55% Bilateral pleural effusion as per account executive key accounts pleural effusion is not drainable Acute on chronic kidney disease: Creatinine seems to be improving required IV fluids yesterday He will need 40 mg of Lasix every day at the time of discharge Anemia due to iron deficiency: Completed 3 days of IV iron, will continue p.o. at the time of discharge, continue subcu B12 for low vitamin B-12 DNR/DNI Dysphagia diet DVT prophylaxis on board Attestations Medical Necessity Statement*: Discharge tomorrow Time Spent in Patient Care: less than 15 minutes Coding Level of Care Code Acute Indoor Landscape Architect for Chg Fwd Diagnoses Neurogenic bladder N31.9 Mild mental handicap F70 Stasis dermatitis I87.2 Pneumonia J18.9 Aspiration pneumonia J69.0 Type 2 diabetes mellitus without complications E11.9 Anemia D64.9
[2021-01-28 16:38] LABS: Glucose Point of Care 149 mg/dL (70-110)
--- NOTE | 2021-01-28 18:52 | PC.NURSE ---
Shift report received from Deisy HILTON. Patient in bed/awake. Denies pain/ no s/s of pain or discomfort. IV patent/SL. Telemetry monitoring present. Suprapubic catheter patent draining clear yellow urine. No needs voiced at this time.
[2021-01-28 21:01] LABS: Glucose Point of Care 244 mg/dL (70-110)
[2021-01-29] VITALS (8 sets, daily range): BP systolic 122–148; BP diastolic 57–78; PULSE 71–89; RESP 17–29; TEMP 36.4–36.9; O2SAT 90–96
[2021-01-29] MEDS: ipratropium-albuterol 3 mL Neb INHALATION ×2 (03:24→09:57)
--- NOTE | 2021-01-29 03:42 | PC.NURSE ---
0200 Patient in bed/ awake/ has hollered most of this shift / wants someone to stay in room with him Re oriented and educated patient that he was in hospital and we would check on him frequently. Unable to re direct. 0344 At this time patient is in bed / resting / no s/s of pain or discomfort.
[2021-01-29 06:35] LABS: Glucose Point of Care 93 mg/dL (70-110)
[2021-01-29 06:47] LABS: Anion Gap 15.9 (5-19); Blood Urea Nitrogen 41 mg/dL (8-23); Calcium 7.6 mg/dL (8.5-10.5); Carbon Dioxide 30 mmol/L (22-29); Chloride 106 mmol/L (98-107); Glucose 71 mg/dL (65-115); Osmolality Calculated 315 mOsm/kg (285-295); Potassium 3.9 mmol/L (3.5-5.1); Sodium 148 mmol/L (136-145)
[2021-01-29] MEDS: magnesium oxide 400 mg tablet PO (08:45)
[2021-01-29] MEDS: ferrous sulfate EC 325 mg Tablet PO (08:45)
[2021-01-29] MEDS: pantoprazole DR 40 mg Tablet PO (08:45)
[2021-01-29] MEDS: atorvastatin 40 mg Tablet 20 MG PO (08:45)
[2021-01-29] MEDS: sucralfate 1 gm Tablet PO (08:45)
[2021-01-29] MEDS: citalopram 20 mg Tablet 40 MG PO (08:45)
[2021-01-29] MEDS: enoxaparin 40 mg/0.4 mL Syringe SUBCUT (08:45)
[2021-01-29 09:57] LABS: ABG PH Result 7.38 (7.35-7.45); Arterial Blood Gas Hematocrit 25.5 % (42-52); Base Excess ABG 11.3 mmol/L (-2.0-2.0); Blood Gas Operator Identificat GD; Blood Gas Sample Site Brachial, left; Blood Gas Sample Type Arterial; Carboxyhemoglobin 0.8 %THgb (0.4-20.1); HGB O2 Sat 89.4 % (95-100); Ionized Calcium Level - ABG 1.1 mmol/L (1.1-1.4); Methemoglobin 1.1 % (0.4-1.5); Oxygen Device NC; Oxygen Saturation ABG 91.1; PO2 ABG 64.5 mmHg (80.0-100.0); Potassium Level - ABG 3.6 mmol/L (3.5-5.0); Total Hemoglobin 8.3 g/dL (14-18)
[2021-01-29 09:58] LABS: Alveolar-Arterial Oxygen Gradi 7.6 mmHg (5-10)
[2021-01-29 11:01] LABS: Glucose Point of Care 144 mg/dL (70-110)
--- NOTE | 2021-01-29 12:05 | PM.DCS ---
Discharge Providers Date of Admission: 01/20/21 10:55 Date of Discharge: January 29, 2021 Attending Provider at Admission: Elle Mcclure MD Attending Provider at Discharge: Elle Mcclure MD Primary Care Provider: Young Sotelo MD Diagnoses at Discharge Discharge Diagnosis (1) Neurogenic bladder: Status: Acute (2) Mild mental handicap: Status: Acute (3) Stasis dermatitis: Status: Acute (4) Pneumonia: Status: Acute (5) Aspiration pneumonia: Status: Acute (6) Type 2 diabetes mellitus without complications: Status: Acute (7) Anemia: Status: Acute Reason for Visit Reason for Visit: AMS Hospital Course Hospital Course HPI as per Dr. Maradiaga, Kelton Wiseman is a 80 year old male, [facility] resident at [facility] for developmental delay. At a baseline patient does communicate no with very simple words, able to make needs known such as hunger bowel movements is extra. Transfers with a walker at baseline does not ambulate very much. He is brought into the emergency room today due to complaints of difficulty breathing, hypoxia new oxygen requirement of 5 L/min on nasal cannula. This past week he was also being treated for a urinary tract infection with levofloxacin 750 mg p.o. daily. History is obtained by talking to nurse at [facility]. About 2 weeks ago patient had an episode of witnessed aspiration while he was eating a large piece of chicken. He was on a regular diet prior, after this event he was evaluated by swallow specialist and has been placed on a soft mechanical diet. Patient has a chronic indwelling Villatoro in place which is changed regularly. Chest x-ray today shows right lower lobe pneumonia with pleural effusion. ABG shows hypercapnic respiratory failure with pH 7.24, 80 point 4.8, he was thereafter placed on a BiPAP. He has been afebrile. No leukocytosis noted on labs from 01 18 and today. Noted to have anemia with hemoglobin 7.2, no recent noted melena or hemoptysis at the [facility]. Last known baseline hemoglobin is ~9 last checked on November 15, 2020 He was tested with rapid Covid antigen this past week and was reportedly negative. PCR has been checked today and pending Course Patient was admitted for right lower lobe aspiration pneumonia. He also had hypoxia hypercapnic respiratory failure on admission he was placed on BiPAP and now back to nasal cannula. He was also diuresed with IV Lasix for his bilateral pleural effusions. He is now down to 2 to 3 L of oxygen. BNP was 1300 on admission. Echo was done during hospital stay which showed normal EF 55% with no regional wall motion abnormality. There was abnormal septal motion seen. Mildly reduced right ventricular systolic function. Patient does have history of obstructive sleep apnea and uses BiPAP at night. Dr. Sotelo is his primary care doctor. Patient did have a one-time temperature spike up to 100.2 3 days ago but later on has remained afebrile for the last 3 days. Patient's hemoglobin was also in the 7 range on admission and it stayed stable in that range during hospital stay. He was worked up and iron deficiency anemia was diagnosed. He is on iron orally at home. He was given IV Venofer during hospital stay. Vitamin B12 is also low and he was started on subcu B12 injections. He will need to follow-up with primary care to keep an eye on his hemoglobin, B12. Was also given follow-up with cardiology for follow-up regarding mild right-sided heart failure. I have increased his Lasix from 20 daily to 40 daily at this point. On physical exam he seems euvolemic and well diuresed. Covid test negative during hospital stay. WBC count normal. He will be discharged home on Augmentin to cover for aspiration pneumonia and UTI. Urine did grow Proteus mirabilis sensitive to Augmentin which can be possible colonization due to his chronic suprapubic catheter. We did call the [facility] and patient's baseline mental status is how he was in the hospital during the stay. Patient is able to make his needs known and can talk and basic vocabulary. He does tend to repeat the sentences over and over again and ask for coffee. He also fiddles with his catheter and sometimes pulls it out. At baseline he can transfer from bed to chair but cannot really walk without assistance. Patient was also seen by speech pathology while here. He was on a regular diet prior to arrival but now is on a dysphagia 2 ground diet. Patient was able to finish his breakfast on his own this morning and is in good spirits today. Plan is to discharge him back to [facility] with close follow-up with primary care. Patient had a rapid response on 01/26 when he became obtunded, ABG revealed hypercapnic respiratory failure, patient is DNR/DNI, he was put on BiPAP for about 30 to 40 minutes repeat blood gas did show improvement patient started waking up, nonfocal neuro exam, this was likely related to pickwickian syndrome Low vitamin B12 he did receive supplementation during hospitalization For low iron he got 3 doses of Venofer, at the time of discharge he will get p.o. iron supplementation Dysphagia ground diet Patient did receive adequate antibiotics during hospitalization, he will only get 3 more days of Augmentin for aspiration pneumonia coverage Brother updated: It is very important that patient stays compliant with his BiPAP at night and use Lasix on daily basis he does have tendency for acute on chronic hypercapnic respiratory failure with underlying sleep apnea/hypoventilation pickwickian syndrome. Brother is well aware that he carries a guarded prognosis. Physical Exam Narrative: EXAM NARRATIVE: Patient was on BiPAP this morning He was asking for his clothes Able to make eye contact Nonfocal neuro exam Was on 3 L nasal cannula in the morning Clinically looks fluid overloaded Bilateral breath sound with rhonchi and crackles Distended abdomen Lower extremity edema positive, venous stasis dermatitis Discharge Data Data Completed and Pending: Completed Studies During Hospitalization Category Date Time Status CT angio chest 71 275 Stat Cat Scan 01/23/21 17:[address] chest wo con 7 1250 Urgent Cat Scan 01/23/21 11:[address] head wo con* 7 0450 Stat Cat Scan 01/27/21 19:[address] head wo con* 7 0450 Urgent Cat Scan 01/20/21 01:10 Completed XR chest 1V roya ble [id number] Routine Exams 01/25/21 13:40 Completed XR chest 1V roya ble [id number] Stat Exams 01/28/21 11:15 Completed XR chest 1V roya ble [id number] Urgent Exams 01/20/21 01:10 Completed XR chest 1V roya ble [id number] Urgent Exams 01/22/21 08:10 Completed XR chest 1V roya ble [id number] Urgent Exams 01/25/21 11:48 [place] [id number] Urgent Ultrasound 01/24/21 17:26 Completed CV. echo limited 30361 Routine Ultrasound 01/21/21 06:00 Completed Pending at discharge Category Date Time Status Sputum Culture an d Gram Stain Routi ne Lab 01/20/21 07:46 Uncollected Labs from last 24 hours 01/29/21 01/29/21 01/29/21 10:58 09:40 06:33 Specimen Type Arterial Sample Site Brachial, left ABG pH 7.38 ABG pCO2 65.0 H* ABG pO2 64.5 L ABG HCO3 38.0 H ABG O2 Saturation 91.1 ABG Base Excess 11.3 H Cedric Test N/a A-a O2 Gradient 7.6 Hematocrit 25.5 L Hgb O2 Saturation 89.4 L Carboxyhemoglobin 0.8 Methemoglobin 1.1 Total Hemoglobin 8.3 L Ionized Calcium 1.1 O2 Delivery Device Nc O2 Liters/Min 2.0 FiO2 28.0 Pump Servicer ID Gd Sodium 150.0 H Potassium 3.6 Chloride Carbon Dioxide Anion Gap BUN Creatinine GFR Calculation Glucose 148.0 H POC Glucose 144 H 93 Calculated Osmolal ity Calcium 01/29/21 01/28/21 01/28/21 05:36 20:59 16:20 Specimen Type Sample Site ABG pH ABG pCO2 ABG pO2 ABG HCO3 ABG O2 Saturation ABG Base Excess Cedric Test A-a O2 Gradient Hematocrit Hgb O2 Saturation Carboxyhemoglobin Methemoglobin Total Hemoglobin Ionized Calcium O2 Delivery Device O2 Liters/Min FiO2 Pump Servicer ID Sodium 148 H Potassium 3.9 Chloride 106 Carbon Dioxide 30 H Anion Gap 15.9 BUN 41 H Creatinine 1.6 H GFR Calculation Not Reportable Glucose 71 POC Glucose 244 H 149 H Calculated Osmolal ity 315 H Calcium 7.6 L Vitals: Last Vital Signs Temp 97.5 F L 01/29/21 11:16 Pulse 72 01/29/21 11:16 Resp 29 H 01/29/21 11:16 BP 139/78 01/29/21 11:16 Pulse Ox 90 01/29/21 11:16 Discharge Plan Discharge Patient Disposition: Xfer SNF Condition: Stable Prescriptions: New cyanocobalamin (vitamin B-12) 1,000 mcg/mL Solution 1,000 mcg SUBCUT DAILY 5 Days Qty: 5 RF: 0 Augmentin 875-125 mg tablet 1 tab PO Q12H 5 Days Qty: 10 RF: 0 ferrous sulfate 325 mg (65 mg iron) Tablet,Delayed Release (Dr/Ec) 325 mg PO DAILY 30 Days Qty: 30 RF: 2 Lasix 40 mg tablet 40 mg PO DAILY Qty: 60 RF: 3 Continued citalopram 40 mg tablet 40 mg PO DAILY Qty: 30 RF: 0 terazosin 5 mg capsule 5 mg PO DAILY RF: 0 acetaminophen [Tylenol Extra Strength] 500 mg tablet 500 mg PO Q6H PRN (Reason: Pain, Mild) RF: 0 sucralfate [Carafate] 1 gram tablet 1 gm PO BID RF: 0 pravastatin [Pravachol] 40 mg tablet 40 mg PO DAILY RF: 0 metformin 500 mg tablet 500 mg PO BID RF: 0 docusate sodium [Colace] 100 mg capsule 100 mg PO DAILY RF: 0 ferrous sulfate 325 mg (65 mg iron) tablet 325 mg PO DAILY RF: 0 aspirin [Adult Aspirin Regimen] 81 mg tablet,delayed release (DR/EC) 81 mg PO DAILY RF: 0 triamcinolone acetonide 0.1 % ointment 1 applic topical BID Qty: 453.6 RF: 3 albuterol sulfate 90 mcg/actuation Hfa Aerosol Inhaler 1 puff INHALATION QID PRN (Reason: Wheezing) RF: 0 ondansetron 4 mg Tablet,Disintegrating 4 mg PO Q6H PRN (Reason: Nausea) RF: 0 levocetirizine 5 mg Tablet 5 mg PO DAILY RF: 0 Changed Lasix 20 mg tablet 40 mg PO DAILY Qty: 0 RF: 0 Held magnesium oxide 400 mg (241.3 mg magnesium) tablet 400 mg PO DAILY RF: 0 Hold Instructions: see pcp lisinopril 2.5 mg tablet 2.5 mg PO DAILY RF: 0 Hold Instructions: Resume on 02/04/21. Discontinued levofloxacin 750 mg tablet 750 mg PO DAILY 7 Days Qty: 7 RF: 0 potassium chloride 10 mEq capsule, extended release 10 meq PO DAILY RF: 0 Fxonabo-Pwslyik-Hzxlpxbdbntvha 90-60-800 mg Tablet Extended Release 12 Hr 1 tab PO QID RF: 0 Discharge Orders: Discharge Order (Routine); Ordered 01/29/21 Ordered By: Elle Mcclure Other Ambulatory Orders: Basic Metabolic Panel (Routine) Timeframe: 1 Week Facility: [facility] - Location: Lab - Main Lab Ordered By: Jeanne Dalton Complete Blood Count w/Auto (Routine) Timeframe: 1 Week Location: Determined by Patient Ordered By: Jeanne Dalton Referrals: Young Sotelo MD [Primary Care Provider] - 1 week (Ashleigh will follow up with pt at the [facility]) Discharge Diet: As Directed Discharge Activity: Wheelchair as instructed and As per PT/OT instructions Patient Instructions: Iron Supplements (By mouth), Furosemide (By mouth), Amoxicillin/Clavulanate Potassium (By mouth) (Augmentin, Augmentin..., Vitamin B-12 (By mouth) Activity Restrictions/Additional Instructions: Dysphagia level 2 diet - ground Specific instructions for the [facility]p Patient will need assisted spoon feeding Would benefit from one-to-one supervision during assist with spoon feeding Aspiration precautions must be followed Patient will need BiPAP at night and on as needed basis intermittently in the daytime, he should take Lasix 40 mg daily starting 01/29, his creatinine LAURA improved with IV fluids in the hospital. Holding lisinopril for 1 week, repeat CBC and BMP Discharge Attestations Time Spent in Discharge Care*: less than 30 min Quality Metrics Clinical Quality Measures During this hospital stay, did patient experience: None Coding Level of Care Code Acute Chg FW DC note Diagnoses Neurogenic bladder N31.9 Mild mental handicap F70 Stasis dermatitis I87.2 Pneumonia J18.9 Aspiration pneumonia J69.0 Type 2 diabetes mellitus without complications E11.9 Anemia D64.9
--- NOTE | 2021-01-29 12:33 | PC.SOCIAL ---
IMM Updated Updated pt on IMM. No questions voiced. Provided Pt a copy. Initialed, dated, & timed copy in chart.
--- NOTE | 2021-01-29 12:41 | PC.NURSE ---
Report to Sadia CEDILLO at [facility] at this time.
--- NOTE | 2021-01-29 15:01 | PC.NURSE ---
Patient assisted into Wheel Chair x3. Patient is alert to self and place. Patient to return to [facility] by ready transport.
== END 2021-01-29 15:00 | disposition skilled nursing facility (03) | DRG 177 ==
LOC: ER 10:04 → ER IP 11:25 → CSU 18:21 → MEDSURG 21:53
PROVIDERS: Internal Medicine; Student in an Organized Health Care Education/Training Program; Admitting Provider Internal Medicine; Emergency Provider Emergency Medicine; PCP Internal Medicine; Visit Provider Internal Medicine
DX: J69.0 Pneumonitis due to inhalation of food and vomit (principal); J96.02 Acute respiratory failure with hypercapnia; J96.01 Acute respiratory failure with hypoxia; T83.518A Infection and inflammatory reaction due to other urinary catheter, initial encounter; Z68.42 Body mass index [BMI] 45.0-49.9, adult; G82.20 Paraplegia, unspecified; E66.2 Morbid (severe) obesity with alveolar hypoventilation; N17.9 Acute kidney failure, unspecified; J90 Pleural effusion, not elsewhere classified; R62.50 Unspecified lack of expected normal physiological development in childhood; N31.9 Neuromuscular dysfunction of bladder, unspecified; E11.22 Type 2 diabetes mellitus with diabetic chronic kidney disease; N18.9 Chronic kidney disease, unspecified; Y73.1 Therapeutic (nonsurgical) and rehabilitative gastroenterology and urology devices associated with adverse incidents; D50.9 Iron deficiency anemia, unspecified; K21.9 Gastro-esophageal reflux disease without esophagitis; E78.00 Pure hypercholesterolemia, unspecified; Z96.0 Presence of urogenital implants; Z66 Do not resuscitate; I87.2 Venous insufficiency (chronic) (peripheral); Z79.51 Long term (current) use of inhaled steroids; Z79.82 Long term (current) use of aspirin; Z79.84 Long term (current) use of oral hypoglycemic drugs; Z99.89 Dependence on other enabling machines and devices; E53.8 Deficiency of other specified B group vitamins; I50.810 Right heart failure, unspecified; B96.4 Proteus (mirabilis) (morganii) as the cause of diseases classified elsewhere; I51.7 Cardiomegaly
CPT/HCPCS: 32555; 36415; 36416; 36600; 51798; 70450; 71045; 71250; 71275; 80048; 80051; 80053; 81001; 82274; 82330; 82607; 82728; 82746; 82803; 82805; 82962; 83036; 83540; 83550; 83605; 83690; 83735; 83880; 84145; 84484; 85014; 85018; 85025; 85378; 85610; 86140; 86403; 86850; 86900; 86920; 87040; 87077; 87086; 87186; 87426; 87449; 87635; 87641; 87804; 92523; 92526; 92610; 93005; 93308; 93970; 94640; 94660; 96365; 96366; 96372; 96375; 99285; J1650; J1756; J1815; J1940; J2310; J2405; J2543; J3420; J3490; J7030; Q9967